=== PATIENT | female | born 1970 | race Hispanic/Latino ===

== ENCOUNTER → 2019-08-01 | Outpatient (CLI) | payer BC | END | disposition home or self-care (01) | LOC: OIH 12:55 | PROVIDERS: ATTEND Internal Medicine | DX: M19.011 Primary osteoarthritis, right shoulder (principal); M24.811 Other specific joint derangements of right shoulder, not elsewhere classified | CPT/HCPCS: 73030 ==

== ENCOUNTER 2020-11-05 20:03 | Emergency (ER) | payer BC ==
[2020-11-05 20:57] LABS: RAPID GROUP A STREP NEGATIVE (NEGATIVE)
[2020-11-05 21:59] LABS: BASOPHILS % (AUTO) 0.6 % (0.0-5.0); EOSINOPHILS % (AUTO) 3.5 % (0.0-8.0); HEMATOCRIT 31.5 % (36-48); LYMPHOCYTES % (AUTO) 19.2 % (21.0-51.0); MEAN CORPUSCULAR VOLUME 93.8 fL (79-99); MONOCYTES % (AUTO) 6.2 % (3.0-13.0); NEUTROPHILS % (AUTO) 70.1 % (40.0-77.0); PLATELET COUNT (AUTO) 268 K/uL (130-400); RED BLOOD CELL COUNT(AUTO) 3.36 MIL/uL (4.00-5.50); RED CELL DISTRIBUTION WIDTH 14.3 % (11.0-15.5); WHITE BLOOD COUNT (AUTO) 8.1 K/uL (4.8-10.8)
[2020-11-05 22:20] LABS: ALBUMIN 3.5 g/dL (3.5-5.0); BILIRUBIN,TOTAL 0.5 mg/dL (0.2-1.0); CREATININE 4.8 mg/dL (0.5-1.5); POTASSIUM 4.5 mmol/L (3.5-5.1); TOTAL PROTEIN, SERUM 7.8 g/dL (6.0-8.3)
[2020-11-05] MEDS ORDERED: INSULIN HUMULIN R 100 UNIT/ML 3ML ONE (22:43)
== END 2020-11-05 23:33 | disposition home or self-care (01) ==
LOC: EDH 20:03
DX: B34.9 Viral infection, unspecified (principal); R73.9 Hyperglycemia, unspecified; Z20.828 Contact with and (suspected) exposure to other viral communicable diseases; I12.0 Hypertensive chronic kidney disease with stage 5 chronic kidney disease or end stage renal disease; N18.6 End stage renal disease; E78.00 Pure hypercholesterolemia, unspecified; Z91.14 Patient's other noncompliance with medication regimen; Z88.1 Allergy status to other antibiotic agents; Z98.890 Other specified postprocedural states; Z99.2 Dependence on renal dialysis
CPT/HCPCS: 36415; 71045; 80053; 83605; 84484; 85025; 87040 ×2; 87426; 87804 ×2; 87880; 96372; 99284; J1815; U0003

== ENCOUNTER 2020-12-04 19:25 | Observation (INO) | payer BC ==
[2020-12-04 21:11] LABS: BASOPHILS % (AUTO) 0.5 % (0.0-5.0); EOSINOPHILS % (AUTO) 0.5 % (0.0-8.0); HEMATOCRIT 32.7 % (36-48); LYMPHOCYTES % (AUTO) 18.2 % (21.0-51.0); MEAN CORPUSCULAR HEMOGLOBIN 30.2 pg (27.0-33.0); MEAN CORPUSCULAR HGB CONC 32.1 g/dL (32.0-36.0); MONOCYTES % (AUTO) 7.6 % (3.0-13.0); NEUTROPHILS % (AUTO) 72.7 % (40.0-77.0); PLATELET COUNT (AUTO) 165 K/uL (130-400); RED BLOOD CELL COUNT(AUTO) 3.48 MIL/uL (4.00-5.50); RED CELL DISTRIBUTION WIDTH 14.8 % (11.0-15.5); WHITE BLOOD COUNT (AUTO) 4.3 K/uL (4.8-10.8)
[2020-12-04 21:34] LABS: ALBUMIN 3.4 g/dL (3.5-5.0); BILIRUBIN,TOTAL 0.7 mg/dL (0.2-1.0); CRP QUANTITATIVE 83.2 mg/L (0.00-9.0); POTASSIUM 5.3 mmol/L (3.5-5.1); TOTAL PROTEIN, SERUM 7.8 g/dL (6.0-8.3)
[2020-12-04 21:35] LABS: CREATININE 8.3 mg/dL (0.5-1.5)
[2020-12-04] MEDS ORDERED: ACETAMINOPHEN EXTRA STRENGTH 500 MG TABLET ONE (22:15)
[2020-12-04] MEDS ORDERED: ALBUTEROL INHALER 90MCG/INH IH ONE (22:15)
[2020-12-05] MEDS ORDERED: METHYLPREDNISOLONE SOD SUCC 40MG/ML 1ML ONE (03:36)
[2020-12-05] MEDS ORDERED: ENOXAPARIN SODIUM 30 MG/0.3 ML SQ ONE (03:37)
[2020-12-05] MEDS ORDERED: AZITHROMYCIN 250 MG TABLET PO ONE (03:37)
[2020-12-05] MEDS ORDERED: INSULIN HUMULIN R 100 UNIT/ML 3ML ONE ×3 (08:41→21:20)
[2020-12-05] MEDS ORDERED: HYDROCODONE/ACETAMINOPHEN 5/325 MG TAB PO PRN (11:00)
[2020-12-05] MEDS ORDERED: ALBUTEROL INHALER 90MCG/INH IH PRN (11:00)
[2020-12-05] MEDS ORDERED: CLONIDINE HCL 0.1 MG TABLET PO PRN (11:00)
[2020-12-05] MEDS ORDERED: ONDANSETRON HCL 4 MG/2 ML VIAL IVP PRN (11:00)
[2020-12-05] MEDS ORDERED: ACETAMINOPHEN 325 MG TAB PO PRN (11:00)
[2020-12-05] MEDS ORDERED: ACETAMINOPHEN 650 MG SUPPOSITORY RC PRN (11:00)
[2020-12-05] MEDS ORDERED: LABETALOL 20 MG/4 ML DISP.SYRIN IV PRN (11:00)
[2020-12-05] MEDS: METOCLOPRAMIDE 5 MG TABLET PO SCH ×3 (11:30→21:00)
[2020-12-05] MEDS ORDERED: INSULIN HUMULIN R 100 UNIT/ML 3ML SQ SCH (11:30)
[2020-12-05 11:59] LABS: ABG BASE EXCESS -2.6 mmol/L (-2.0-3.0); ABG HCO3 22.3 mmol/L (21.0-28.0); ABG OXYGEN SATURATION 96.2 % (95.0-99.0); ABG PCO2 39 mmHg (32-45)
[2020-12-05 12:40] LABS: TROPONIN I 0.49 ng/mL (0.00-0.06)
[2020-12-05 17:41] LABS: CREATINE KINASE, TOTAL 77 U/L (21-232); MYOGLOBIN 56 ng/mL (10-92); TROPONIN I < 0.04 ng/mL (0.00-0.06)
[2020-12-05] MEDS ORDERED: DIPHENHYDRAMINE HCL 25 MG CAPSULE ONE (17:51)
[2020-12-05] MEDS: ENOXAPARIN SODIUM 30 MG/0.3 ML SQ SCH (21:00)
[2020-12-05] MEDS: INSULIN GLARGINE 100 UNITS/ML 10 ML VIAL SQ SCH (21:00)
[2020-12-05] MEDS: INSULIN HUMULIN R 100 UNIT/ML 3ML SQ SCH (21:00)
[2020-12-05] MEDS ORDERED: SIMVASTATIN 20 MG TABLET PO SCH (21:00)
[2020-12-06 01:14] LABS: TROPONIN I 0.53 ng/mL (0.00-0.06)
[2020-12-06 05:43] LABS: BASOPHILS % (AUTO) 0.4 % (0.0-5.0); EOSINOPHILS % (AUTO) 0.3 % (0.0-8.0); LYMPHOCYTES % (AUTO) 13.7 % (21.0-51.0); MEAN CORPUSCULAR HEMOGLOBIN 30.2 pg (27.0-33.0); MEAN CORPUSCULAR HGB CONC 31.9 g/dL (32.0-36.0); MEAN CORPUSCULAR VOLUME 94.5 fL (79-99); MONOCYTES % (AUTO) 3.2 % (3.0-13.0); NEUTROPHILS % (AUTO) 82.1 % (40.0-77.0); PLATELET COUNT (AUTO) 174 K/uL (130-400); RED BLOOD CELL COUNT(AUTO) 3.81 MIL/uL (4.00-5.50); RED CELL DISTRIBUTION WIDTH 14.6 % (11.0-15.5); WHITE BLOOD COUNT (AUTO) 7.7 K/uL (4.8-10.8)
[2020-12-06 06:16] LABS: ALBUMIN 3.3 g/dL (3.5-5.0); BILIRUBIN,TOTAL 0.6 mg/dL (0.2-1.0); CREATININE 6.5 mg/dL (0.5-1.5); CRP QUANTITATIVE 106.4 mg/L (0.00-9.0); MAGNESIUM 2.1 mg/dL (1.80-2.40); PHOSPHORUS 5.2 mg/dL (2.5-4.9); POTASSIUM 4.2 mmol/L (3.5-5.1); TOTAL PROTEIN, SERUM 8.1 g/dL (6.0-8.3)
[2020-12-06] MEDS: INSULIN HUMULIN R 100 UNIT/ML 3ML SQ SCH ×3 (06:33→17:03)
[2020-12-06] MEDS: INSULIN GLARGINE 100 UNITS/ML 10 ML VIAL SQ SCH (06:34)
[2020-12-06] MEDS: METOCLOPRAMIDE 5 MG TABLET PO SCH ×2 (07:03→13:53)
[2020-12-06] MEDS ORDERED: VITAMIN D 2000 UNIT PO SCH (09:00)
[2020-12-06] MEDS ORDERED: ASCORBIC ACID 500 MG TAB PO SCH (09:00)
[2020-12-06] MEDS ORDERED: AZITHROMYCIN 500MG+NS 250ML IV SCH (09:00)
[2020-12-06] MEDS ORDERED: CEFTRIAXONE SODIUM 1 GM IVP SCH (09:00)
[2020-12-06] MEDS ORDERED: DEXAMETHASONE SOD PHOSPHATE 10MG/ML 1ML VIAL IVP SCH (09:00)
[2020-12-06] MEDS ORDERED: Vitamin B Complex/Vit C/Folic Acid PO SCH (09:00)
[2020-12-06] MEDS ORDERED: AZITHROMYCIN 500MG+NS 250ML 250 ML IV SCH (09:00)
[2020-12-06] MEDS ORDERED: PANTOPRAZOLE SODIUM 40 MG TABLET.DR PO SCH (09:00)
[2020-12-06] MEDS ORDERED: ASPIRIN 81MG TAB.CHEW PO SCH (09:00)
[2020-12-06] MEDS: ENOXAPARIN SODIUM 30 MG/0.3 ML SQ SCH (09:41)
[2020-12-06 10:15] VITALS: BP 142/68
[2020-12-06 12:00] VITALS: BP 136/74
[2020-12-06] MEDS ORDERED: AZIT500T4 PO (12:00)
[2020-12-06] MEDS ORDERED: DEXA6TAB7 PO (12:00)
[2020-12-06] MEDS ORDERED: ZINC SULFATE 220 CAPSULE PO SCH (12:00)
[2020-12-10] MEDS ORDERED: DOXY100C40 PO (14:47)
[2020-12-20] MEDS ORDERED: LACT10SO PO (22:02)
== END 2020-12-06 19:40 | disposition home or self-care (01) ==
LOC: EDH 19:25 → EDHIP 23:25 → 4AH 12-06
PROVIDERS: ADMIT Internal Medicine Critical Care Medicine; ATTEND Internal Medicine Critical Care Medicine
DX: U07.1 COVID-19 (principal); J12.82 Pneumonia due to coronavirus disease 2019; J96.01 Acute respiratory failure with hypoxia; I12.0 Hypertensive chronic kidney disease with stage 5 chronic kidney disease or end stage renal disease; E11.22 Type 2 diabetes mellitus with diabetic chronic kidney disease; N18.6 End stage renal disease; E87.2 Acidosis; E11.51 Type 2 diabetes mellitus with diabetic peripheral angiopathy without gangrene; E66.9 Obesity, unspecified; E78.2 Mixed hyperlipidemia; E11.65 Type 2 diabetes mellitus with hyperglycemia; E87.5 Hyperkalemia; D64.9 Anemia, unspecified; E78.00 Pure hypercholesterolemia, unspecified; E83.39 Other disorders of phosphorus metabolism; Z99.2 Dependence on renal dialysis; Z91.19 Patient's noncompliance with other medical treatment and regimen; Z89.512 Acquired absence of left leg below knee; Z89.611 Acquired absence of right leg above knee; Z89.612 Acquired absence of left leg above knee; Z79.82 Long term (current) use of aspirin; Z79.4 Long term (current) use of insulin; Z79.899 Other long term (current) drug therapy; Z88.1 Allergy status to other antibiotic agents
CPT/HCPCS: 36415 ×3; 36600; 71045 ×2; 80053 ×2; 82550 ×4; 82728 ×2; 82803; 82948 ×8; 83605 ×2; 83615; 83735; 83874 ×3; 83880; 84100; 84145 ×2; 84484 ×4; 85025 ×2; 85378; 86140 ×2; 86850; 86900; 86901; 87040 ×2; 87426; 87804 ×2; 93005; 96365; 96366; 96372; 96375; 99285; G0378 ×42; J0456; J0696; J1100; J1650 ×2; J1815 ×4; J2920; Q0163; 90935

== ENCOUNTER 2020-12-09 03:28 | Inpatient (IN) | payer BC ==
[~2020-12-09] VITALS: Ht 152.4 cm; Wt 90.3 kg
[~2020-12-09 03:28] MED LIST: AZIT500T4 PO; DEXA6TAB7 PO
[2020-12-09] MEDS ORDERED: CEFTRIAXONE 2GM VIAL ONE (04:18)
[2020-12-09 04:25] LABS: BASOPHILS % (AUTO) 0.1 % (0.0-5.0); HEMATOCRIT 33.9 % (36-48); LYMPHOCYTES % (AUTO) 7.4 % (21.0-51.0); MEAN CORPUSCULAR HGB CONC 31.3 g/dL (32.0-36.0); MEAN CORPUSCULAR VOLUME 92.9 fL (79-99); MONOCYTES % (AUTO) 2.2 % (3.0-13.0); NEUTROPHILS % (AUTO) 89.7 % (40.0-77.0); PLATELET COUNT (AUTO) 243 K/uL (130-400); RED BLOOD CELL COUNT(AUTO) 3.65 MIL/uL (4.00-5.50); RED CELL DISTRIBUTION WIDTH 14.9 % (11.0-15.5); WHITE BLOOD COUNT (AUTO) 9.4 K/uL (4.8-10.8)
[2020-12-09] MEDS ORDERED: AZITHROMYCIN 500MG+NS 250ML 250 ML IV ONE (04:42)
[2020-12-09 04:57] LABS: ALBUMIN 2.9 g/dL (3.5-5.0); BILIRUBIN,TOTAL 0.5 mg/dL (0.2-1.0); CRP QUANTITATIVE 114.2 mg/L (0.00-9.0); TOTAL PROTEIN, SERUM 7.2 g/dL (6.0-8.3)
[2020-12-09 05:01] LABS: B-TYPE NATRIURETIC PEPTIDE 2640 pg/mL (0-100)
[2020-12-09 05:06] LABS: CREATININE 11.5 mg/dL (0.5-1.5); TROPONIN I 1.18 ng/mL (0.00-0.06)
[2020-12-09 05:07] LABS: INR 1.03 (0.85-1.15)
[2020-12-09 05:09] LABS: PARTIAL THROMBOPLASTIN TIME 31.2 SEC (26.3-35.5)
[2020-12-09] MEDS ORDERED: ALBUTEROL INHALER 90MCG/INH IH ONE (05:43)
[2020-12-09] MEDS ORDERED: ASPIRIN 325 MG TABLET ONE (05:44)
[2020-12-09] MEDS ORDERED: KAYEXALATE 15GM/60ML ONE (05:44)
[2020-12-09] MEDS ORDERED: SODIUM BICARB 50MEQ 50ML VIAL 50 ML ONE (05:45)
[2020-12-09] MEDS ORDERED: DEXTROSE 50%-WATER 50 ML DISP.SYRIN IV ONE (05:45)
[2020-12-09] MEDS ORDERED: INSULIN HUMULIN R 100 UNIT/ML 3ML ONE ×4 (05:46→20:30)
[2020-12-09 05:48] LABS: ABG BASE EXCESS -10.7 mmol/L (-2.0-3.0); ABG HCO3 15.5 mmol/L (21.0-28.0); ABG OXYGEN SATURATION 85.7 % (95.0-99.0); ABG PCO2 35 mmHg (32-45)
[2020-12-09] MEDS: DEXAMETHASONE SOD PHOSPHATE 4 MG/ML 1ML VIAL IVP SCH (12:00)
[2020-12-09] MEDS: AZITHROMYCIN 500MG+NS 250ML 250 ML IV SCH (12:15)
[2020-12-09] MEDS ORDERED: HEPARIN 5,000 UNIT VIAL SQ SCH (12:15)
[2020-12-09] MEDS ORDERED: ALBUTEROL 0.083% 2.5 MG/3 ML INH IH PRN (12:15)
[2020-12-09] MEDS ORDERED: ONDANSETRON 4MG TABLET PO PRN (12:15)
[2020-12-09] MEDS ORDERED: DEXAMETHASONE SOD PHOSPHATE 10MG/ML 1ML VIAL ONE (13:48)
[2020-12-09] MEDS ORDERED: HEPARIN 5,000 UNIT VIAL ONE (13:48)
[2020-12-09] MEDS ORDERED: PANTOPRAZOLE 40 MG TAB DR ONE (13:48)
[2020-12-09] MEDS ORDERED: ZINC SULFATE 220 CAPSULE ONE (14:44)
[2020-12-09] MEDS ORDERED: ASCORBIC ACID 500 MG TAB ONE (14:44)
[2020-12-09] MEDS ORDERED: CLOPIDOGREL 300MG TAB ONE (16:07)
[2020-12-09] MEDS: INSULIN HUMULIN R 100 UNIT/ML 3ML SQ SCH ×2 (16:30→21:00)
[2020-12-09] MEDS ORDERED: CLOPIDOGREL 300MG TAB PO SCH (16:45)
[2020-12-09] MEDS ORDERED: ALBUTEROL INHALER 90MCG/INH IH PRN (17:45)
[2020-12-09] MEDS: FLUTICASONE/VILANTEROL 1 EACH AER.POW.BA IH SCH (18:00)
[2020-12-09] MEDS ORDERED: 0.9%NACL 50ML 50 ML IV ONE (20:26)
[2020-12-09] MEDS: ENOXAPARIN SODIUM 100 MG/1 ML SQ SCH (21:00)
[2020-12-09] MEDS ORDERED: BUDESONIDE 0.5 MG/2 ML INH IH SCH (21:00)
[2020-12-09] MEDS: INSULIN GLARGINE 100 UNITS/ML 10 ML VIAL SQ SCH (21:00)
[2020-12-09] MEDS ORDERED: DiphenhydrAMINE HCL 50 MG/ML VIAL ONE (22:26)
[2020-12-09] MEDS ORDERED: ACETAMINOPHEN 325 MG TAB ONE (22:26)
[2020-12-09] MEDS ORDERED: FAMOTIDINE 20MG VIAL IV ONE (22:27)
[2020-12-10] MEDS ORDERED: HEPARIN 5,000 UNIT VIAL ONE (02:07)
[2020-12-10] MEDS ORDERED: CEFTRIAXONE 1G VIAL ONE (03:58)
[2020-12-10 05:49] LABS: HEMATOCRIT 31.7 % (36-48); MEAN CORPUSCULAR HEMOGLOBIN 30.4 pg (27.0-33.0); MEAN CORPUSCULAR HGB CONC 33.8 g/dL (32.0-36.0); MEAN CORPUSCULAR VOLUME 90.1 fL (79-99); PLATELET COUNT (AUTO) 253 K/uL (130-400); RED BLOOD CELL COUNT(AUTO) 3.52 MIL/uL (4.00-5.50); RED CELL DISTRIBUTION WIDTH 14.3 % (11.0-15.5)
[2020-12-10 06:05] LABS: PHOSPHORUS 6.4 mg/dL (2.5-4.9); POTASSIUM 4.3 mmol/L (3.5-5.1)
[2020-12-10 06:13] LABS: CREATININE 8.8 mg/dL (0.5-1.5)
[2020-12-10 07:03] LABS: LYMPHOCYTES % (MANUAL) 9 % (22-44); MAN.DIFF COMMENT-IMPRESSION MANUAL DIFFERENTIAL; MONOCYTES % (MANUAL) 4 % (2-9); PLATELET MORPHOLOGY COMMENT ADEQUATE; SEGMENTED NEUTROPHILS % 87 % (40-70)
[2020-12-10] MEDS: INSULIN HUMULIN R 100 UNIT/ML 3ML SQ SCH ×4 (07:30→21:00)
[2020-12-10] MEDS ORDERED: PANTOPRAZOLE 40 MG TAB DR ONE (07:58)
[2020-12-10] MEDS ORDERED: DEXAMETHASONE SOD PHOSPHATE 10MG/ML 1ML VIAL ONE (07:58)
[2020-12-10] MEDS ORDERED: CLOPIDOGREL 75MG TAB ONE (08:05)
[2020-12-10] MEDS ORDERED: ASPIRIN 81MG CHEW TAB ONE (08:06)
[2020-12-10] MEDS: FLUTICASONE/VILANTEROL 1 EACH AER.POW.BA IH SCH (09:00)
[2020-12-10] MEDS: DEXAMETHASONE SOD PHOSPHATE 4 MG/ML 1ML VIAL IVP SCH (09:00)
[2020-12-10] MEDS: CLOPIDOGREL 75MG TAB PO SCH (09:00)
[2020-12-10] MEDS: CEFTRIAXONE 500MG VIAL IV SCH (09:00)
[2020-12-10] MEDS: ASPIRIN 81MG CHEW TAB PO SCH (09:00)
[2020-12-10] MEDS: PANTOPRAZOLE 40 MG TAB DR PO SCH (09:00)
[2020-12-10] MEDS: AZITHROMYCIN 500MG+NS 250ML 250 ML IV SCH (12:15)
[2020-12-10] MEDS ORDERED: INSULIN HUMULIN R 100 UNIT/ML 3ML ONE ×2 (12:25→16:44)
[2020-12-10] MEDS ORDERED: OLOP5DRO14 OP (14:47)
[2020-12-10] MEDS ORDERED: INSU3INS5 SQ ×2 (14:47)
[2020-12-10] MEDS ORDERED: HYDR-4153 PO (14:47)
[2020-12-10] MEDS ORDERED: MELO15TA12 PO (14:47)
[2020-12-10] MEDS ORDERED: LACT10SO76 PO (14:47)
[2020-12-10] MEDS ORDERED: AZIT500T4 PO (14:47)
[2020-12-10] MEDS ORDERED: SEVE800T27 PO (14:47)
[2020-12-10] MEDS ORDERED: ASPI-1443 PO (14:47)
[2020-12-10] MEDS ORDERED: DOXY-336 PO (14:47)
[2020-12-10] MEDS ORDERED: TRAZ-185 PO (14:47)
[2020-12-10] MEDS: INSULIN GLARGINE 100 UNITS/ML 10 ML VIAL SQ SCH (21:00)
[2020-12-10] MEDS: ENOXAPARIN SODIUM 100 MG/1 ML SQ SCH (21:00)
[2020-12-10 22:10] VITALS: BP 190/88
[2020-12-10 23:35] VITALS: BP 178/78
[2020-12-11 03:55] VITALS: BP 168/83
[2020-12-11 04:10] LABS: ABG BASE EXCESS -3.2 mmol/L (-2.0-3.0); ABG HCO3 21.1 mmol/L (21.0-28.0); ABG OXYGEN SATURATION 86.3 % (95.0-99.0); ABG PCO2 36 mmHg (32-45)
[2020-12-11 06:05] LABS: HEMATOCRIT 30.5 % (36-48); LYMPHOCYTES % (AUTO) 8.5 % (21.0-51.0); MEAN CORPUSCULAR HEMOGLOBIN 29.8 pg (27.0-33.0); MEAN CORPUSCULAR HGB CONC 33.4 g/dL (32.0-36.0); MEAN CORPUSCULAR VOLUME 89.2 fL (79-99); MONOCYTES % (AUTO) 2.6 % (3.0-13.0); NEUTROPHILS % (AUTO) 87.9 % (40.0-77.0); PLATELET COUNT (AUTO) 248 K/uL (130-400); RED BLOOD CELL COUNT(AUTO) 3.42 MIL/uL (4.00-5.50); RED CELL DISTRIBUTION WIDTH 14.3 % (11.0-15.5); WHITE BLOOD COUNT (AUTO) 8.6 K/uL (4.8-10.8)
[2020-12-11 06:27] LABS: POTASSIUM 4.2 mmol/L (3.5-5.1)
[2020-12-11 06:33] LABS: CREATININE 10.1 mg/dL (0.5-1.5)
[2020-12-11] MEDS: ACETAMINOPHEN 325 MG TAB PO PRN ×2 (06:43→16:56)
[2020-12-11] MEDS: INSULIN HUMULIN R 100 UNIT/ML 3ML SQ SCH ×3 (06:44→17:20)
[2020-12-11 08:50] VITALS: BP 154/73
[2020-12-11] MEDS: GABAPENTIN 100 MG CAPSULE PO SCH ×3 (08:52→22:28)
[2020-12-11] MEDS: CLOPIDOGREL 75MG TAB PO SCH (08:52)
[2020-12-11] MEDS: ASPIRIN 81MG CHEW TAB PO SCH (08:52)
[2020-12-11] MEDS: DEXAMETHASONE SOD PHOSPHATE 4 MG/ML 1ML VIAL IVP SCH (08:52)
[2020-12-11] MEDS: CEFTRIAXONE 500MG VIAL IV SCH ×2 (08:53→09:00)
[2020-12-11] MEDS: PANTOPRAZOLE 40 MG TAB DR PO SCH (08:53)
[2020-12-11] MEDS: FLUTICASONE/VILANTEROL 1 EACH AER.POW.BA IH SCH (09:00)
[2020-12-11] MEDS ORDERED: TRAZODONE HCL 50 MG TAB PO SCH (12:15)
[2020-12-11] MEDS: AZITHROMYCIN 500MG+NS 250ML 250 ML IV SCH (12:36)
[2020-12-11] MEDS ORDERED: IBUPROFEN 400 MG TABLET PO PRN (12:45)
[2020-12-11 12:50] VITALS: BP 129/66
[2020-12-11] MEDS ORDERED: SEVELAMER HCL 800 MG TABLET PO SCH (14:00)
[2020-12-11 16:45] VITALS: BP 148/56
[2020-12-11] MEDS: HYDRALAZINE 25MG TABLET PO SCH ×3 (16:55→22:54)
[2020-12-11] MEDS: LACTULOSE 20 GM/30 ML UDCUP PO SCH ×2 (16:56→22:28)
[2020-12-11 20:28] VITALS: BP 118/53
[2020-12-11] MEDS ORDERED: INSULIN HUMULIN 70/30 100 UNIT/ML 3ML SQ SCH (21:00)
[2020-12-11] MEDS: ENOXAPARIN SODIUM 100 MG/1 ML SQ SCH (22:26)
[2020-12-11] MEDS: TRAZODONE HCL 50 MG TAB PO SCH (22:27)
[2020-12-11] MEDS ORDERED: INSULIN HUMULIN R 100 UNIT/ML 3ML ONE (23:47)
[2020-12-11] MEDS: INSULIN GLARGINE 100 UNITS/ML 10 ML VIAL SQ SCH (23:52)
[2020-12-12 00:44] VITALS: BP 91/55
[2020-12-12 04:32] VITALS: BP 112/58
[2020-12-12 05:30] LABS: BASOPHILS % (AUTO) 0.1 % (0.0-5.0); EOSINOPHILS % (AUTO) 0.1 % (0.0-8.0); HEMATOCRIT 34.1 % (36-48); LYMPHOCYTES % (AUTO) 11.3 % (21.0-51.0); MEAN CORPUSCULAR HEMOGLOBIN 30.2 pg (27.0-33.0); MEAN CORPUSCULAR HGB CONC 33.4 g/dL (32.0-36.0); MEAN CORPUSCULAR VOLUME 90.5 fL (79-99); NEUTROPHILS % (AUTO) 86.3 % (40.0-77.0); PLATELET COUNT (AUTO) 281 K/uL (130-400); RED BLOOD CELL COUNT(AUTO) 3.77 MIL/uL (4.00-5.50); RED CELL DISTRIBUTION WIDTH 14.6 % (11.0-15.5); WHITE BLOOD COUNT (AUTO) 10.2 K/uL (4.8-10.8)
[2020-12-12 05:55] LABS: ALBUMIN 2.4 g/dL (3.5-5.0); BILIRUBIN,TOTAL 0.3 mg/dL (0.2-1.0); PHOSPHORUS 6.2 mg/dL (2.5-4.9); POTASSIUM 4.2 mmol/L (3.5-5.1); TOTAL PROTEIN, SERUM 7.3 g/dL (6.0-8.3)
[2020-12-12] MEDS: INSULIN HUMULIN R 100 UNIT/ML 3ML SQ SCH ×4 (05:56→21:05)
[2020-12-12 05:58] LABS: CREATININE 7.9 mg/dL (0.5-1.5)
[2020-12-12 08:23] VITALS: BP 115/66
[2020-12-12] MEDS: CLOPIDOGREL 75MG TAB PO SCH (08:31)
[2020-12-12] MEDS: SEVELAMER HCL 800 MG TABLET PO SCH ×4 (08:31→20:58)
[2020-12-12] MEDS: GABAPENTIN 100 MG CAPSULE PO SCH ×3 (08:31→20:56)
[2020-12-12] MEDS: PANTOPRAZOLE 40 MG TAB DR PO SCH (08:31)
[2020-12-12] MEDS: ASPIRIN 81MG CHEW TAB PO SCH (08:31)
[2020-12-12] MEDS: HYDRALAZINE 25MG TABLET PO SCH ×3 (08:32→20:56)
[2020-12-12] MEDS: FLUTICASONE/VILANTEROL 1 EACH AER.POW.BA IH SCH (08:33)
[2020-12-12] MEDS: DEXAMETHASONE SOD PHOSPHATE 4 MG/ML 1ML VIAL IVP SCH (08:33)
[2020-12-12] MEDS: LACTULOSE 20 GM/30 ML UDCUP PO SCH ×3 (08:34→21:00)
[2020-12-12] MEDS: INSULIN HUMULIN 70/30 100 UNIT/ML 3ML SQ SCH (08:47)
[2020-12-12] MEDS: OLOPATADINE HCL 0.1% 5ML DROPS OP SCH (09:00)
[2020-12-12] MEDS: CEFTRIAXONE 500MG VIAL IV SCH (09:00)
[2020-12-12 11:13] LABS: HEPATITIS A ANTIBODY IGM Negative (Negative); HEPATITIS B CORE IGM Negative (Negative); HEPATITIS Bs ANTIGEN SCREEN P Negative (Negative)
[2020-12-12] MEDS: AZITHROMYCIN 500MG+NS 250ML 250 ML IV SCH (12:19)
[2020-12-12] MEDS: ONDANSETRON 4MG INJ IVP PRN ×2 (12:22→20:59)
[2020-12-12 12:40] VITALS: BP 131/70
[2020-12-12 16:50] VITALS: BP 115/76
[2020-12-12 20:24] VITALS: BP 115/67
[2020-12-12] MEDS: TRAZODONE HCL 50 MG TAB PO SCH (20:56)
[2020-12-12] MEDS: ENOXAPARIN SODIUM 100 MG/1 ML SQ SCH (20:57)
[2020-12-12] MEDS ORDERED: INSULIN GLARGINE 100 UNITS/ML 10 ML VIAL SQ ONE (21:45)
[2020-12-12] MEDS ORDERED: INSULIN HUMULIN R 100 UNIT/ML 3ML SQ SCH (23:00)
[2020-12-13 00:24] VITALS: BP 129/63
[2020-12-13 04:24] VITALS: BP 122/58
[2020-12-13 04:57] LABS: BASOPHILS % (AUTO) 0.1 % (0.0-5.0); EOSINOPHILS % (AUTO) 0.1 % (0.0-8.0); HEMATOCRIT 31.5 % (36-48); LYMPHOCYTES % (AUTO) 15.6 % (21.0-51.0); MEAN CORPUSCULAR HEMOGLOBIN 29.6 pg (27.0-33.0); MEAN CORPUSCULAR HGB CONC 32.4 g/dL (32.0-36.0); MEAN CORPUSCULAR VOLUME 91.3 fL (79-99); MONOCYTES % (AUTO) 1.4 % (3.0-13.0); NEUTROPHILS % (AUTO) 81.2 % (40.0-77.0); PLATELET COUNT (AUTO) 312 K/uL (130-400); RED BLOOD CELL COUNT(AUTO) 3.45 MIL/uL (4.00-5.50); RED CELL DISTRIBUTION WIDTH 14.6 % (11.0-15.5); WHITE BLOOD COUNT (AUTO) 8.1 K/uL (4.8-10.8)
[2020-12-13 05:12] LABS: PHOSPHORUS 6.8 mg/dL (2.5-4.9); POTASSIUM 5.1 mmol/L (3.5-5.1)
[2020-12-13 05:15] LABS: CREATININE 9.4 mg/dL (0.5-1.5)
[2020-12-13] MEDS: INSULIN HUMULIN R 100 UNIT/ML 3ML SQ SCH ×4 (06:15→20:22)
[2020-12-13] MEDS: CLOPIDOGREL 75MG TAB PO SCH (08:33)
[2020-12-13] MEDS: PANTOPRAZOLE 40 MG TAB DR PO SCH (08:33)
[2020-12-13] MEDS: HYDRALAZINE 25MG TABLET PO SCH ×3 (08:33→20:17)
[2020-12-13] MEDS: LACTULOSE 20 GM/30 ML UDCUP PO SCH ×3 (08:34→20:17)
[2020-12-13] MEDS: DEXAMETHASONE SOD PHOSPHATE 4 MG/ML 1ML VIAL IVP SCH (08:34)
[2020-12-13] MEDS: GABAPENTIN 100 MG CAPSULE PO SCH ×3 (08:34→20:16)
[2020-12-13] MEDS: SEVELAMER HCL 800 MG TABLET PO SCH ×3 (08:34→20:16)
[2020-12-13] MEDS: ASPIRIN 81MG CHEW TAB PO SCH (08:34)
[2020-12-13] MEDS: OLOPATADINE HCL 0.1% 5ML DROPS OP SCH (08:35)
[2020-12-13] MEDS: INSULIN HUMULIN 70/30 100 UNIT/ML 3ML SQ SCH (08:40)
[2020-12-13 08:48] VITALS: BP 112/69
[2020-12-13] MEDS: FLUTICASONE/VILANTEROL 1 EACH AER.POW.BA IH SCH (09:00)
[2020-12-13] MEDS: AZITHROMYCIN 500MG+NS 250ML 250 ML IV SCH (11:42)
[2020-12-13 12:55] VITALS: BP 118/66
[2020-12-13] MEDS: CEFTRIAXONE 500MG VIAL IV SCH (14:06)
[2020-12-13 16:10] VITALS: BP 106/54
[2020-12-13 20:00] VITALS: BP 118/62
[2020-12-13] MEDS: TRAZODONE HCL 50 MG TAB PO SCH (20:16)
[2020-12-13] MEDS: ENOXAPARIN SODIUM 100 MG/1 ML SQ SCH (20:20)
[2020-12-13] MEDS: INSULIN GLARGINE 100 UNITS/ML 10 ML VIAL SQ SCH (20:22)
[2020-12-14 00:44] VITALS: BP 143/73
[2020-12-14 05:26] VITALS: BP 138/68
[2020-12-14] MEDS: INSULIN HUMULIN R 100 UNIT/ML 3ML SQ SCH ×4 (05:53→22:13)
[2020-12-14 06:29] LABS: BASOPHILS % (AUTO) 0.2 % (0.0-5.0); EOSINOPHILS % (AUTO) 2.1 % (0.0-8.0); HEMATOCRIT 30.8 % (36-48); LYMPHOCYTES % (AUTO) 9.1 % (21.0-51.0); MEAN CORPUSCULAR HEMOGLOBIN 30.2 pg (27.0-33.0); MEAN CORPUSCULAR HGB CONC 32.1 g/dL (32.0-36.0); MEAN CORPUSCULAR VOLUME 93.9 fL (79-99); MONOCYTES % (AUTO) 1.3 % (3.0-13.0); NEUTROPHILS % (AUTO) 83.2 % (40.0-77.0); PLATELET COUNT (AUTO) 345 K/uL (130-400); RED BLOOD CELL COUNT(AUTO) 3.28 MIL/uL (4.00-5.50); RED CELL DISTRIBUTION WIDTH 14.6 % (11.0-15.5); WHITE BLOOD COUNT (AUTO) 10.8 K/uL (4.8-10.8)
[2020-12-14 06:42] LABS: CREATININE 6.9 mg/dL (0.5-1.5); MAGNESIUM 2.1 mg/dL (1.80-2.40); PHOSPHORUS 4.3 mg/dL (2.5-4.9); POTASSIUM 4.9 mmol/L (3.5-5.1)
[2020-12-14 08:30] VITALS: BP 132/69
[2020-12-14] MEDS: FLUTICASONE/VILANTEROL 1 EACH AER.POW.BA IH SCH (09:00)
[2020-12-14] MEDS: LACTULOSE 20 GM/30 ML UDCUP PO SCH ×3 (09:00→21:38)
[2020-12-14] MEDS: DEXAMETHASONE SOD PHOSPHATE 4 MG/ML 1ML VIAL IVP SCH (09:11)
[2020-12-14] MEDS: CLOPIDOGREL 75MG TAB PO SCH (09:11)
[2020-12-14] MEDS: SEVELAMER HCL 800 MG TABLET PO SCH ×3 (09:11→21:38)
[2020-12-14] MEDS: PANTOPRAZOLE 40 MG TAB DR PO SCH (09:11)
[2020-12-14] MEDS: GABAPENTIN 100 MG CAPSULE PO SCH ×3 (09:12→21:38)
[2020-12-14] MEDS: ASPIRIN 81MG CHEW TAB PO SCH (09:12)
[2020-12-14] MEDS: HYDRALAZINE 25MG TABLET PO SCH ×3 (09:12→21:00)
[2020-12-14] MEDS: OLOPATADINE HCL 0.1% 5ML DROPS OP SCH (09:13)
[2020-12-14] MEDS: INSULIN HUMULIN 70/30 100 UNIT/ML 3ML SQ SCH (09:22)
[2020-12-14] MEDS ORDERED: SIMETHICONE 80 MG TAB.CHEW PO PRN (11:00)
[2020-12-14 11:29] VITALS: BP 110/47
[2020-12-14] MEDS: AZITHROMYCIN 500MG+NS 250ML 250 ML IV SCH (11:53)
[2020-12-14 16:27] VITALS: BP 131/40
[2020-12-14 20:43] VITALS: BP 116/52
[2020-12-14] MEDS: CEFTRIAXONE 500MG VIAL IV SCH (21:00)
[2020-12-14] MEDS: TRAZODONE HCL 50 MG TAB PO SCH (21:38)
[2020-12-14] MEDS: ENOXAPARIN SODIUM 100 MG/1 ML SQ SCH (21:41)
[2020-12-14] MEDS ORDERED: CEFTRIAXONE 1G VIAL ONE (21:50)
[2020-12-14] MEDS: INSULIN GLARGINE 100 UNITS/ML 10 ML VIAL SQ SCH (22:13)
[2020-12-15] VITALS (7 sets, daily range): BP systolic 132–188; BP diastolic 57–94
[2020-12-15 03:53] LABS: ABG OXYGEN SATURATION 88.4 % (95.0-99.0); ABG PCO2 42 mmHg (32-45)
[2020-12-15 06:26] LABS: HEMATOCRIT 30.5 % (36-48); MEAN CORPUSCULAR HEMOGLOBIN 29.6 pg (27.0-33.0); MEAN CORPUSCULAR HGB CONC 31.8 g/dL (32.0-36.0); RED BLOOD CELL COUNT(AUTO) 3.28 MIL/uL (4.00-5.50); RED CELL DISTRIBUTION WIDTH 14.9 % (11.0-15.5); WHITE BLOOD COUNT (AUTO) 9.4 K/uL (4.8-10.8)
[2020-12-15 06:43] LABS: POTASSIUM 4.9 mmol/L (3.5-5.1)
[2020-12-15 06:46] LABS: CREATININE 8.6 mg/dL (0.5-1.5)
[2020-12-15] MEDS: INSULIN HUMULIN R 100 UNIT/ML 3ML SQ SCH ×4 (06:50→21:46)
[2020-12-15] MEDS: ASPIRIN 81MG CHEW TAB PO SCH (08:53)
[2020-12-15] MEDS: SOLU-MEDROL 125MG VIAL IVP SCH ×3 (08:53→21:28)
[2020-12-15] MEDS: PANTOPRAZOLE 40 MG TAB DR PO SCH (08:53)
[2020-12-15] MEDS: GABAPENTIN 100 MG CAPSULE PO SCH ×3 (08:53→21:30)
[2020-12-15] MEDS: LACTULOSE 20 GM/30 ML UDCUP PO SCH ×3 (08:54→21:30)
[2020-12-15] MEDS: SEVELAMER HCL 800 MG TABLET PO SCH ×3 (08:54→21:27)
[2020-12-15] MEDS: CLOPIDOGREL 75MG TAB PO SCH (08:54)
[2020-12-15] MEDS: HYDRALAZINE 25MG TABLET PO SCH ×3 (08:54→21:27)
[2020-12-15] MEDS: OLOPATADINE HCL 0.1% 5ML DROPS OP SCH (08:55)
[2020-12-15] MEDS: FLUTICASONE/VILANTEROL 1 EACH AER.POW.BA IH SCH (08:55)
[2020-12-15] MEDS: INSULIN HUMULIN 70/30 100 UNIT/ML 3ML SQ SCH (09:02)
[2020-12-15] MEDS: AZITHROMYCIN 500MG+NS 250ML 250 ML IV SCH (11:46)
[2020-12-15] MEDS: CEFTRIAXONE 500MG VIAL IV SCH (21:27)
[2020-12-15] MEDS: TRAZODONE HCL 50 MG TAB PO SCH (21:30)
[2020-12-15] MEDS: ENOXAPARIN SODIUM 100 MG/1 ML SQ SCH (21:32)
[2020-12-15] MEDS: INSULIN GLARGINE 100 UNITS/ML 10 ML VIAL SQ SCH (21:46)
[2020-12-16] MEDS: SOLU-MEDROL 125MG VIAL IVP SCH ×4 (03:30→18:49)
[2020-12-16 04:03] VITALS: BP 141/69
[2020-12-16 06:28] LABS: HEMATOCRIT 29.8 % (36-48); MEAN CORPUSCULAR HEMOGLOBIN 29.9 pg (27.0-33.0); MEAN CORPUSCULAR HGB CONC 32.6 g/dL (32.0-36.0); RED BLOOD CELL COUNT(AUTO) 3.24 MIL/uL (4.00-5.50); RED CELL DISTRIBUTION WIDTH 14.6 % (11.0-15.5); WHITE BLOOD COUNT (AUTO) 11.8 K/uL (4.8-10.8)
[2020-12-16 06:50] LABS: POTASSIUM 5.8 mmol/L (3.5-5.1)
[2020-12-16] MEDS: INSULIN HUMULIN R 100 UNIT/ML 3ML SQ SCH ×4 (06:51→22:18)
[2020-12-16 06:53] LABS: CREATININE 9.5 mg/dL (0.5-1.5)
[2020-12-16 08:00] VITALS: BP 146/68
[2020-12-16] MEDS: OLOPATADINE HCL 0.1% 5ML DROPS OP SCH (09:00)
[2020-12-16] MEDS: FLUTICASONE/VILANTEROL 1 EACH AER.POW.BA IH SCH (09:00)
[2020-12-16] MEDS: LACTULOSE 20 GM/30 ML UDCUP PO SCH ×3 (09:41→21:38)
[2020-12-16] MEDS: SEVELAMER HCL 800 MG TABLET PO SCH ×3 (09:42→21:41)
[2020-12-16] MEDS: ASPIRIN 81MG CHEW TAB PO SCH (09:42)
[2020-12-16] MEDS: HYDRALAZINE 25MG TABLET PO SCH ×3 (09:42→21:42)
[2020-12-16] MEDS: CLOPIDOGREL 75MG TAB PO SCH (09:43)
[2020-12-16] MEDS: GABAPENTIN 100 MG CAPSULE PO SCH ×3 (09:43→21:42)
[2020-12-16] MEDS: PANTOPRAZOLE 40 MG TAB DR PO SCH (09:43)
[2020-12-16] MEDS: INSULIN HUMULIN 70/30 100 UNIT/ML 3ML SQ SCH (09:51)
[2020-12-16] MEDS: ACETAMINOPHEN 325 MG TAB PO PRN (10:09)
[2020-12-16 12:00] VITALS: BP 132/79
[2020-12-16] MEDS ORDERED: EPOETIN ALFA-EPBX (ESRD) 10,000 UNIT/ML VIAL SQ SCH (14:00)
[2020-12-16 16:00] VITALS: BP 145/74
[2020-12-16 20:36] VITALS: BP 119/55
[2020-12-16] MEDS: CEFTRIAXONE 500MG VIAL IV SCH (21:39)
[2020-12-16] MEDS: ENOXAPARIN SODIUM 100 MG/1 ML SQ SCH (21:41)
[2020-12-16] MEDS: TRAZODONE HCL 50 MG TAB PO SCH (21:42)
[2020-12-16] MEDS: INSULIN GLARGINE 100 UNITS/ML 10 ML VIAL SQ SCH (22:19)
[2020-12-17 00:28] VITALS: BP 131/70
[2020-12-17] MEDS: SOLU-MEDROL 125MG VIAL IVP SCH ×5 (01:27→22:30)
[2020-12-17 04:50] VITALS: BP 122/60
[2020-12-17 06:02] LABS: BASOPHILS % (AUTO) 0.1 % (0.0-5.0); LYMPHOCYTES % (AUTO) 4.1 % (21.0-51.0); MEAN CORPUSCULAR HEMOGLOBIN 29.6 pg (27.0-33.0); MEAN CORPUSCULAR HGB CONC 32.5 g/dL (32.0-36.0); MEAN CORPUSCULAR VOLUME 91.2 fL (79-99); MONOCYTES % (AUTO) 1.7 % (3.0-13.0); NEUTROPHILS % (AUTO) 92.2 % (40.0-77.0); PLATELET COUNT (AUTO) 577 K/uL (130-400); RED BLOOD CELL COUNT(AUTO) 3.51 MIL/uL (4.00-5.50); RED CELL DISTRIBUTION WIDTH 14.7 % (11.0-15.5); WHITE BLOOD COUNT (AUTO) 14.2 K/uL (4.8-10.8)
[2020-12-17] MEDS: INSULIN HUMULIN R 100 UNIT/ML 3ML SQ SCH ×4 (06:26→22:04)
[2020-12-17 06:27] LABS: ALBUMIN 2.4 g/dL (3.5-5.0); BILIRUBIN,TOTAL 0.2 mg/dL (0.2-1.0); POTASSIUM 5.3 mmol/L (3.5-5.1); TOTAL PROTEIN, SERUM 7.3 g/dL (6.0-8.3)
[2020-12-17] MEDS: INSULIN HUMULIN 70/30 100 UNIT/ML 3ML SQ SCH (08:02)
[2020-12-17 08:32] VITALS: BP 126/57
[2020-12-17] MEDS: FLUTICASONE/VILANTEROL 1 EACH AER.POW.BA IH SCH (09:00)
[2020-12-17] MEDS: OLOPATADINE HCL 0.1% 5ML DROPS OP SCH (10:01)
[2020-12-17] MEDS: PANTOPRAZOLE 40 MG TAB DR PO SCH (10:08)
[2020-12-17] MEDS: HYDRALAZINE 25MG TABLET PO SCH ×3 (10:08→21:50)
[2020-12-17] MEDS: LACTULOSE 20 GM/30 ML UDCUP PO SCH ×3 (10:08→21:49)
[2020-12-17] MEDS: CLOPIDOGREL 75MG TAB PO SCH (10:08)
[2020-12-17] MEDS: GABAPENTIN 100 MG CAPSULE PO SCH ×3 (10:09→21:48)
[2020-12-17] MEDS: SEVELAMER HCL 800 MG TABLET PO SCH ×3 (10:09→21:49)
[2020-12-17] MEDS: ASPIRIN 81MG CHEW TAB PO SCH (10:10)
[2020-12-17 12:16] VITALS: BP 128/55
[2020-12-17 16:53] VITALS: BP 124/50
[2020-12-17 19:25] LABS: ABG BASE EXCESS -2.7 mmol/L (-2.0-3.0); ABG HCO3 21.8 mmol/L (21.0-28.0); ABG OXYGEN SATURATION 90.7 % (95.0-99.0); ABG PCO2 38 mmHg (32-45)
[2020-12-17 20:07] VITALS: BP 142/63
[2020-12-17] MEDS: CEFTRIAXONE 500MG VIAL IV SCH (21:48)
[2020-12-17] MEDS: TRAZODONE HCL 50 MG TAB PO SCH (21:50)
[2020-12-17] MEDS: ENOXAPARIN SODIUM 100 MG/1 ML SQ SCH (21:51)
[2020-12-17] MEDS: INSULIN GLARGINE 100 UNITS/ML 10 ML VIAL SQ SCH (22:04)
[2020-12-17] MEDS ORDERED: PRED20TA3 PO (22:27)
[2020-12-18 00:18] VITALS: BP 151/72
[2020-12-18 04:24] VITALS: BP 130/58
[2020-12-18 04:50] LABS: HEMATOCRIT 30.7 % (36-48); MEAN CORPUSCULAR HEMOGLOBIN 29.9 pg (27.0-33.0); MEAN CORPUSCULAR HGB CONC 32.9 g/dL (32.0-36.0); MEAN CORPUSCULAR VOLUME 90.8 fL (79-99); PLATELET COUNT (AUTO) 579 K/uL (130-400); RED BLOOD CELL COUNT(AUTO) 3.38 MIL/uL (4.00-5.50); RED CELL DISTRIBUTION WIDTH 14.6 % (11.0-15.5); WHITE BLOOD COUNT (AUTO) 14.2 K/uL (4.8-10.8)
[2020-12-18 05:00] LABS: BAND NEUTROPHILS % (MANUAL) 1 % (0-2); LYMPHOCYTES % (MANUAL) 2 % (22-44); MAN.DIFF COMMENT-IMPRESSION MANUAL DIFFERENTIAL; MONOCYTES % (MANUAL) 4 % (2-9); PLATELET MORPHOLOGY COMMENT SLIGHT INCREASED; SEGMENTED NEUTROPHILS % 93 % (40-70)
[2020-12-18 05:03] LABS: CREATININE 8.2 mg/dL (0.5-1.5)
[2020-12-18] MEDS: INSULIN HUMULIN R 100 UNIT/ML 3ML SQ SCH ×3 (06:30→16:30)
[2020-12-18] MEDS: LACTULOSE 20 GM/30 ML UDCUP PO SCH ×2 (08:24→11:21)
[2020-12-18] MEDS: ASPIRIN 81MG CHEW TAB PO SCH (08:25)
[2020-12-18] MEDS: PANTOPRAZOLE 40 MG TAB DR PO SCH (08:25)
[2020-12-18] MEDS: SEVELAMER HCL 800 MG TABLET PO SCH ×2 (08:25→11:21)
[2020-12-18] MEDS: CLOPIDOGREL 75MG TAB PO SCH (08:25)
[2020-12-18] MEDS: HYDRALAZINE 25MG TABLET PO SCH ×2 (08:26→11:20)
[2020-12-18] MEDS: GABAPENTIN 100 MG CAPSULE PO SCH ×2 (08:26→11:21)
[2020-12-18] MEDS: OLOPATADINE HCL 0.1% 5ML DROPS OP SCH (08:27)
[2020-12-18 08:30] VITALS: BP 101/48
[2020-12-18] MEDS: INSULIN HUMULIN 70/30 100 UNIT/ML 3ML SQ SCH (08:32)
[2020-12-18] MEDS: FLUTICASONE/VILANTEROL 1 EACH AER.POW.BA IH SCH (09:00)
[2020-12-18] MEDS: SOLU-MEDROL 125MG VIAL IVP SCH (12:37)
[2020-12-18 12:45] VITALS: BP 118/74
[2020-12-18 16:35] VITALS: BP 110/60
== END 2020-12-18 18:57 | disposition home or self-care (01) | DRG 177 ==
LOC: EDH 03:28 → EDHIP 06:17 → 4BH 12-10 20:30
PROVIDERS: ADMIT Internal Medicine; ATTEND Internal Medicine
PROC: XW13325 Transfusion of Convalescent Plasma (Nonautologous) into Peripheral Vein, Percutaneous Approach, New Technology Group 5 (ICD-10-PCS; principal; 2020-12-09)
PROC: 5A1D70Z Performance of Urinary Filtration, Intermittent, Less than 6 Hours Per Day (ICD-10-PCS; 2020-12-09)
PROC: 5A1D70Z Performance of Urinary Filtration, Intermittent, Less than 6 Hours Per Day (ICD-10-PCS; 2020-12-11)
PROC: 5A1D70Z Performance of Urinary Filtration, Intermittent, Less than 6 Hours Per Day (ICD-10-PCS; 2020-12-13)
PROC: 5A1D70Z Performance of Urinary Filtration, Intermittent, Less than 6 Hours Per Day (ICD-10-PCS; 2020-12-16)
PROC: 5A1D70Z Performance of Urinary Filtration, Intermittent, Less than 6 Hours Per Day (ICD-10-PCS; 2020-12-18)
DX: U07.1 COVID-19 (principal); J96.01 Acute respiratory failure with hypoxia; N18.6 End stage renal disease; J12.82 Pneumonia due to coronavirus disease 2019; I21.4 Non-ST elevation (NSTEMI) myocardial infarction; E87.1 Hypo-osmolality and hyponatremia; I12.0 Hypertensive chronic kidney disease with stage 5 chronic kidney disease or end stage renal disease; E87.2 Acidosis; I24.9 Acute ischemic heart disease, unspecified; E87.70 Fluid overload, unspecified; E78.5 Hyperlipidemia, unspecified; E66.01 Morbid (severe) obesity due to excess calories; E11.51 Type 2 diabetes mellitus with diabetic peripheral angiopathy without gangrene; D64.9 Anemia, unspecified; R94.4 Abnormal results of kidney function studies; E87.5 Hyperkalemia; E11.65 Type 2 diabetes mellitus with hyperglycemia; G47.33 Obstructive sleep apnea (adult) (pediatric); H53.8 Other visual disturbances; E11.22 Type 2 diabetes mellitus with diabetic chronic kidney disease; Z99.2 Dependence on renal dialysis; Z91.19 Patient's noncompliance with other medical treatment and regimen; Z91.11 Patient's noncompliance with dietary regimen; Z68.38 Body mass index [BMI] 38.0-38.9, adult; Z91.15 Patient's noncompliance with renal dialysis; Z89.612 Acquired absence of left leg above knee; Z89.611 Acquired absence of right leg above knee; Z98.891 History of uterine scar from previous surgery
CPT/HCPCS: 36415; 36600; 71045; 71250; 80048; 80053; 80074; 82550; 82728; 82803; 82948; 83605; 83615; 83735; 83874; 83880; 84100; 84145; 84484; 85025; 85027; 85378; 85610; 85730; 86140; 86850; 86900; 86901; 86927; 87040; 87426; 87804; 90935; 93005; 94760; 96365; 96366; 96372; 96375; 99291; G0378; J0456; J0696; J1100; J1200; J1644; J1650; J1815; J2405; J2930; J3490; J7070; Q0162

== ENCOUNTER 2020-12-19 01:54 | Inpatient (IN) | payer BC, OTHER ==
[~2020-12-19] VITALS: Ht 157.5 cm; Wt 91.2 kg
[~2020-12-19 01:54] MED LIST changes: +ASPI-1443 PO; -AZIT500T4 PO; -DEXA6TAB7 PO; +HYDR-4153 PO; +INSU3INS5 SQ; +LACT10SO76 PO; +MELO15TA12 PO; +OLOP5DRO14 OP; +PRED20TA3 PO; +SEVE800T27 PO; +TRAZ-185 PO
[2020-12-19 03:01] LABS: BASOPHILS % (AUTO) 0.1 % (0.0-5.0); EOSINOPHILS % (AUTO) 0.1 % (0.0-8.0); HEMATOCRIT 25.2 % (36-48); LYMPHOCYTES % (AUTO) 8.4 % (21.0-51.0); MEAN CORPUSCULAR HEMOGLOBIN 29.9 pg (27.0-33.0); MEAN CORPUSCULAR HGB CONC 30.2 g/dL (32.0-36.0); MEAN CORPUSCULAR VOLUME 99.2 fL (79-99); MONOCYTES % (AUTO) 5.4 % (3.0-13.0); NEUTROPHILS % (AUTO) 81.5 % (40.0-77.0); PLATELET COUNT (AUTO) 501 K/uL (130-400); RED BLOOD CELL COUNT(AUTO) 2.54 MIL/uL (4.00-5.50); RED CELL DISTRIBUTION WIDTH 15.3 % (11.0-15.5); WHITE BLOOD COUNT (AUTO) 17.4 K/uL (4.8-10.8)
[2020-12-19 03:23] LABS: ALBUMIN 2.1 g/dL (3.5-5.0); BILIRUBIN,TOTAL 0.2 mg/dL (0.2-1.0); CREATININE 6.5 mg/dL (0.5-1.5); CRP QUANTITATIVE 14.5 mg/L (0.00-9.0); MAGNESIUM 3.7 mg/dL (1.80-2.40); POTASSIUM 5.3 mmol/L (3.5-5.1); TOTAL PROTEIN, SERUM 5.9 g/dL (6.0-8.3)
[2020-12-19 03:34] LABS: B-TYPE NATRIURETIC PEPTIDE 183 pg/mL (0-100)
[2020-12-19] MEDS ORDERED: ZOSYN 3.375GM+NS 50ML 50 ML IV SCH (04:15)
[2020-12-19] MEDS: NITROGLYCERIN 1GM OINT 1 INCH/1GM TD SCH ×3 (04:45→20:45)
[2020-12-19] MEDS ORDERED: HYDROCODONE/ACETAMINOPHEN 5/325 MG TAB PO PRN (04:45)
[2020-12-19] MEDS ORDERED: LACTULOSE 20 GM/30 ML UDCUP PO PRN (04:45)
[2020-12-19] MEDS ORDERED: ACETAMINOPHEN 325 MG TAB ONE (05:49)
[2020-12-19] MEDS ORDERED: 0.9% NACL 250ML 250 ML IV ONE (06:46)
[2020-12-19] MEDS: INSULIN HUMULIN R 100 UNIT/ML 3ML SQ SCH ×4 (07:30→21:00)
[2020-12-19 08:36] LABS: ABG BASE EXCESS -3.2 mmol/L (-2.0-3.0); ABG HCO3 22.4 mmol/L (21.0-28.0); ABG OXYGEN SATURATION 98.5 % (95.0-99.0); ABG PCO2 42 mmHg (32-45)
[2020-12-19] MEDS: ENOXAPARIN SODIUM 30 MG/0.3 ML SQ SCH (09:00)
[2020-12-19] MEDS: ASPIRIN 325 MG TABLET PO SCH (09:00)
[2020-12-19] MEDS ORDERED: FAMOTIDINE 20MG TAB PO SCH (09:00)
[2020-12-19] MEDS ORDERED: ENOXAPARIN SODIUM 30 MG/0.3 ML SQ SCH (09:00)
[2020-12-19] MEDS: BENZONATATE 100 MG CAPSULE PO SCH ×3 (09:00→21:00)
[2020-12-19] MEDS: MIDODRINE HCL 5 MG TABLET PO SCH ×3 (09:37→21:00)
[2020-12-19] MEDS ORDERED: ASPIRIN 325 MG TABLET ONE (10:22)
[2020-12-19] MEDS ORDERED: ENOXAPARIN SODIUM 30 MG/0.3 ML SQ ONE (10:22)
[2020-12-19] MEDS ORDERED: BENZONATATE 100 MG CAPSULE PO ONE ×2 (10:22→20:07)
[2020-12-19] MEDS ORDERED: FAMOTIDINE 20MG TAB ONE ×2 (10:22→20:07)
[2020-12-19] MEDS ORDERED: INSULIN HUMULIN R 100 UNIT/ML 3ML ONE ×2 (10:23→12:13)
[2020-12-19] MEDS ORDERED: VANCOMYCIN 1G/250ML KIT 250 ML IV SCH (11:15)
[2020-12-19] MEDS ORDERED: VANCOMYCIN PROTOCOL PER PHARMACY IV SCH (11:15)
[2020-12-19] MEDS ORDERED: ZOSYN 3.375GM+NS 50ML 50 ML IV ONE ×2 (12:13→20:07)
[2020-12-19] MEDS ORDERED: MIDODRINE HCL 5 MG TABLET ONE ×3 (13:37→21:28)
[2020-12-19] MEDS ORDERED: COMPOUND IV REFRIGERATED 1 EACH IVSOLN MISC PRN (14:00)
[2020-12-19] MEDS ORDERED: KAYEXALATE 15GM/60ML PO SCH (14:45)
[2020-12-19] MEDS ORDERED: VANCOMYCIN 1G 1.5 GM in 0.9% NACL 250ML 250 ML IV ONE (15:00)
[2020-12-19] MEDS ORDERED: KAYEXALATE 15GM/60ML ONE (15:09)
[2020-12-19 15:20] LABS: BASOPHILS % (AUTO) 0.1 % (0.0-5.0); EOSINOPHILS % (AUTO) 0.5 % (0.0-8.0); HEMATOCRIT 22.4 % (36-48); LYMPHOCYTES % (AUTO) 15.5 % (21.0-51.0); MEAN CORPUSCULAR HEMOGLOBIN 29.9 pg (27.0-33.0); MEAN CORPUSCULAR HGB CONC 30.8 g/dL (32.0-36.0); MONOCYTES % (AUTO) 4.7 % (3.0-13.0); NEUTROPHILS % (AUTO) 73.9 % (40.0-77.0); NUCLEATED RED BLOOD CELLS 0.1 % (0.0-0.19); PLATELET COUNT (AUTO) 508 K/uL (130-400); RED BLOOD CELL COUNT(AUTO) 2.31 MIL/uL (4.00-5.50); RED CELL DISTRIBUTION WIDTH 15.4 % (11.0-15.5); WHITE BLOOD COUNT (AUTO) 22.2 K/uL (4.8-10.8)
[2020-12-19] MEDS ORDERED: SOLU-MEDROL 40MG VIAL IVP SCH (17:30)
[2020-12-19] MEDS: ZOSYN 3.375GM+NS 50ML 50 ML IV SCH (18:00)
[2020-12-19] MEDS ORDERED: SOLU-MEDROL 40MG VIAL ONE (18:01)
[2020-12-20] MEDS ORDERED: ZOSYN 3.375GM+NS 50ML 50 ML IV ONE (03:55)
[2020-12-20] MEDS: NITROGLYCERIN 1GM OINT 1 INCH/1GM TD SCH ×3 (04:45→20:42)
[2020-12-20] MEDS: ZOSYN 3.375GM+NS 50ML 50 ML IV SCH ×2 (06:00→17:32)
[2020-12-20] MEDS: INSULIN HUMULIN R 100 UNIT/ML 3ML SQ SCH ×4 (07:30→20:42)
[2020-12-20 08:04] LABS: BASOPHILS % (AUTO) 0.1 % (0.0-5.0); MEAN CORPUSCULAR HEMOGLOBIN 30.9 pg (27.0-33.0); MEAN CORPUSCULAR VOLUME 96.6 fL (79-99); MONOCYTES % (AUTO) 2.9 % (3.0-13.0); NEUTROPHILS % (AUTO) 85.7 % (40.0-77.0); NUCLEATED RED BLOOD CELLS 0.2 % (0.0-0.19); PLATELET COUNT (AUTO) 524 K/uL (130-400); RED BLOOD CELL COUNT(AUTO) 2.07 MIL/uL (4.00-5.50); RED CELL DISTRIBUTION WIDTH 15.6 % (11.0-15.5); WHITE BLOOD COUNT (AUTO) 29.1 K/uL (4.8-10.8)
[2020-12-20 08:20] LABS: CREATININE 7.4 mg/dL (0.5-1.5); MAGNESIUM 2.4 mg/dL (1.80-2.40); PHOSPHORUS 8.3 mg/dL (2.5-4.9); POTASSIUM 4.8 mmol/L (3.5-5.1)
[2020-12-20] MEDS ORDERED: 0.9%NACL 1000ML 1,000 ML IV ONE (08:56)
[2020-12-20] MEDS: BENZONATATE 100 MG CAPSULE PO SCH ×3 (09:00→20:40)
[2020-12-20] MEDS: ENOXAPARIN SODIUM 30 MG/0.3 ML SQ SCH (09:00)
[2020-12-20] MEDS: MIDODRINE HCL 5 MG TABLET PO SCH ×3 (09:00→20:40)
[2020-12-20] MEDS: ASPIRIN 325 MG TABLET PO SCH (09:00)
[2020-12-20] MEDS: SOLU-MEDROL 40MG VIAL IVP SCH (09:00)
[2020-12-20] MEDS ORDERED: FAMOTIDINE 20MG TAB PO SCH (09:00)
[2020-12-20] MEDS ORDERED: ASPIRIN 325 MG TABLET ONE (12:02)
[2020-12-20] MEDS ORDERED: SOLU-MEDROL 40MG VIAL ONE (12:02)
[2020-12-20] MEDS ORDERED: MIDODRINE HCL 5 MG TABLET ONE (12:03)
[2020-12-20] MEDS ORDERED: BENZONATATE 100 MG CAPSULE PO ONE (12:03)
[2020-12-20] MEDS ORDERED: ENOXAPARIN SODIUM 40 MG/0.4 ML SYRINGE SQ ONE (12:03)
[2020-12-20] MEDS ORDERED: FAMOTIDINE 20MG VIAL IV ONE (12:04)
[2020-12-20 16:51] VITALS: BP 151/42
[2020-12-20 20:36] VITALS: BP 117/37
[2020-12-20] MEDS ORDERED: DOXY100T2 PO (22:02)
[2020-12-20] MEDS ORDERED: TIMO.5OS OS (22:02)
[2020-12-20] MEDS ORDERED: LATA7.5D OP (22:02)
[2020-12-20] MEDS ORDERED: TRAZ-185 PO (22:02)
[2020-12-20] MEDS ORDERED: LACT10SO5 PO (22:02)
[2020-12-20] MEDS ORDERED: BRIM5DRO4 OP (22:02)
[2020-12-20] MEDS ORDERED: DEXA4TAB PO (22:02)
[2020-12-20] MEDS ORDERED: SEVE0.8P3 PO (22:02)
[2020-12-20] MEDS ORDERED: OLOP5DRO14 OP (22:02)
[2020-12-21 01:07] VITALS: BP 138/41
[2020-12-21 03:51] VITALS: BP 150/32
[2020-12-21] MEDS: NITROGLYCERIN 1GM OINT 1 INCH/1GM TD SCH ×3 (04:13→21:20)
[2020-12-21] MEDS: ZOSYN 3.375GM+NS 50ML 50 ML IV SCH ×2 (05:27→16:48)
[2020-12-21] MEDS: INSULIN HUMULIN R 100 UNIT/ML 3ML SQ SCH ×4 (05:57→21:19)
[2020-12-21 07:31] LABS: BASOPHILS % (AUTO) 0.2 % (0.0-5.0); EOSINOPHILS % (AUTO) 0.2 % (0.0-8.0); HEMATOCRIT 23.9 % (36-48); LYMPHOCYTES % (AUTO) 8.8 % (21.0-51.0); MEAN CORPUSCULAR HEMOGLOBIN 30.6 pg (27.0-33.0); MEAN CORPUSCULAR HGB CONC 33.1 g/dL (32.0-36.0); MEAN CORPUSCULAR VOLUME 92.6 fL (79-99); MONOCYTES % (AUTO) 5.1 % (3.0-13.0); NEUTROPHILS % (AUTO) 82.4 % (40.0-77.0); NUCLEATED RED BLOOD CELLS 0.5 % (0.0-0.19); PLATELET COUNT (AUTO) 371 K/uL (130-400); RED BLOOD CELL COUNT(AUTO) 2.58 MIL/uL (4.00-5.50); RED CELL DISTRIBUTION WIDTH 16.4 % (11.0-15.5); WHITE BLOOD COUNT (AUTO) 24.2 K/uL (4.8-10.8)
[2020-12-21 07:46] LABS: CREATININE 5.3 mg/dL (0.5-1.5); POTASSIUM 3.2 mmol/L (3.5-5.1)
[2020-12-21 08:00] VITALS: BP_SYST 140; BP_DIAS 41; BP_DIAS 48
[2020-12-21] MEDS: MIDODRINE HCL 5 MG TABLET PO SCH ×3 (08:47→21:00)
[2020-12-21] MEDS: ASPIRIN 325 MG TABLET PO SCH (08:47)
[2020-12-21] MEDS: SOLU-MEDROL 40MG VIAL IVP SCH (08:47)
[2020-12-21] MEDS: BENZONATATE 100 MG CAPSULE PO SCH ×3 (08:47→21:20)
[2020-12-21] MEDS: ENOXAPARIN SODIUM 30 MG/0.3 ML SQ SCH (08:48)
[2020-12-21 12:56] VITALS: BP 168/31
[2020-12-21] MEDS: PANTOPRAZOLE 40 MG/VIAL IVP SCH (13:01)
[2020-12-21 16:58] VITALS: BP 140/28
[2020-12-21 20:00] VITALS: BP 168/81
[2020-12-21] MEDS ORDERED: VANCOMYCIN 1G/250ML KIT 250 ML IV ONE (20:00)
[2020-12-22] VITALS (7 sets, daily range): BP systolic 113–163; BP diastolic 36–59
[2020-12-22] MEDS: NITROGLYCERIN 1GM OINT 1 INCH/1GM TD SCH ×3 (04:54→20:14)
[2020-12-22] MEDS: ZOSYN 3.375GM+NS 50ML 50 ML IV SCH ×2 (05:06→17:14)
[2020-12-22] MEDS: INSULIN HUMULIN R 100 UNIT/ML 3ML SQ SCH ×4 (05:55→21:20)
[2020-12-22 06:33] LABS: HEMATOCRIT 23.9 % (36-48); MEAN CORPUSCULAR HEMOGLOBIN 30.7 pg (27.0-33.0); MEAN CORPUSCULAR HGB CONC 33.5 g/dL (32.0-36.0); MEAN CORPUSCULAR VOLUME 91.6 fL (79-99); NUCLEATED RED BLOOD CELLS 0.2 % (0.0-0.19); RED BLOOD CELL COUNT(AUTO) 2.61 MIL/uL (4.00-5.50); RED CELL DISTRIBUTION WIDTH 16.1 % (11.0-15.5); WHITE BLOOD COUNT (AUTO) 18.1 K/uL (4.8-10.8)
[2020-12-22 06:50] LABS: CREATININE 6.9 mg/dL (0.5-1.5); POTASSIUM 3.9 mmol/L (3.5-5.1)
[2020-12-22] MEDS: SOLU-MEDROL 40MG VIAL IVP SCH (09:25)
[2020-12-22] MEDS: BENZONATATE 100 MG CAPSULE PO SCH ×3 (09:25→20:13)
[2020-12-22] MEDS: PANTOPRAZOLE 40 MG/VIAL IVP SCH (09:25)
[2020-12-22] MEDS: MIDODRINE HCL 5 MG TABLET PO SCH ×3 (09:26→20:07)
[2020-12-22] MEDS: PANTOPRAZOLE 40 MG TAB DR PO SCH (17:15)
[2020-12-22] MEDS: INSULIN GLARGINE 100 UNITS/ML 10 ML VIAL SQ SCH (21:21)
[2020-12-23] VITALS (7 sets, daily range): BP systolic 97–180; BP diastolic 39–66
[2020-12-23 04:45] LABS: HEMATOCRIT 23.1 % (36-48); MEAN CORPUSCULAR HEMOGLOBIN 29.9 pg (27.0-33.0); MEAN CORPUSCULAR HGB CONC 32.5 g/dL (32.0-36.0); NUCLEATED RED BLOOD CELLS 0.1 % (0.0-0.19); RED BLOOD CELL COUNT(AUTO) 2.51 MIL/uL (4.00-5.50); RED CELL DISTRIBUTION WIDTH 16.5 % (11.0-15.5); WHITE BLOOD COUNT (AUTO) 15.5 K/uL (4.8-10.8)
[2020-12-23] MEDS: NITROGLYCERIN 1GM OINT 1 INCH/1GM TD SCH ×3 (04:45→21:03)
[2020-12-23 05:12] LABS: CREATININE 7.9 mg/dL (0.5-1.5)
[2020-12-23] MEDS: ZOSYN 3.375GM+NS 50ML 50 ML IV SCH ×2 (05:14→17:04)
[2020-12-23] MEDS: INSULIN HUMULIN R 100 UNIT/ML 3ML SQ SCH ×4 (06:36→21:49)
[2020-12-23] MEDS: PANTOPRAZOLE 40 MG TAB DR PO SCH ×2 (06:38→17:04)
[2020-12-23] MEDS: MIDODRINE HCL 5 MG TABLET PO SCH ×3 (08:44→21:06)
[2020-12-23] MEDS: SOLU-MEDROL 40MG VIAL IVP SCH (08:45)
[2020-12-23] MEDS: BENZONATATE 100 MG CAPSULE PO SCH ×3 (08:45→21:06)
[2020-12-23] MEDS ORDERED: ACETAMINOPHEN 325 MG TAB PO PRN (09:30)
[2020-12-23] MEDS ORDERED: HEPARIN 5,000 UNIT VIAL IJ PRN ×2 (09:30)
[2020-12-23] MEDS ORDERED: 0.9%NACL 1000ML IV PRN (09:30)
[2020-12-23] MEDS ORDERED: NITROGLYCERIN 0.4 MG SL TAB SL PRN (09:30)
[2020-12-23] MEDS ORDERED: 0.9%NACL 1000ML 1,000 ML IV PRN (09:30)
[2020-12-23] MEDS ORDERED: ALBUMIN FOR BP SUPPORT MISC PRN (09:30)
[2020-12-23] MEDS ORDERED: LIDOCAINE HCL-MPF 1% 2ML VIAL IJ PRN (09:30)
[2020-12-23] MEDS: VANCOMYCIN 750MG + NS 250 ML IV SCH ×2 (13:08)
[2020-12-23] MEDS ORDERED: TRAZODONE HCL 50 MG TAB PO SCH (16:45)
[2020-12-23] MEDS: LACTULOSE 20 GM/30 ML UDCUP PO SCH (21:00)
[2020-12-23] MEDS ORDERED: NON-FORMULARY MEDICATION 1 EACH (Lactulose 20 GM) PO SCH (21:00)
[2020-12-23] MEDS ORDERED: SEVELAMER CARBONATE 0.8 GM PO SCH (21:00)
[2020-12-23] MEDS: OLOPATADINE HCL 0.1% 5ML DROPS OP SCH (21:03)
[2020-12-23] MEDS: TIMOLOL MALEATE 0.5% 5 ML BOTTLE OS SCH (21:04)
[2020-12-23] MEDS: LATANOPROST 2.5 ML DROPS OU SCH (21:04)
[2020-12-23] MEDS: HYDRALAZINE 25MG TABLET PO SCH (21:06)
[2020-12-23] MEDS: EPOETIN ALFA-EPBX (ESRD) 10,000 UNIT/ML VIAL SQ SCH (21:06)
[2020-12-23] MEDS: INSULIN GLARGINE 100 UNITS/ML 10 ML VIAL SQ SCH (21:16)
[2020-12-24 00:25] VITALS: BP 165/40
[2020-12-24 04:29] VITALS: BP 144/37
[2020-12-24] MEDS: NITROGLYCERIN 1GM OINT 1 INCH/1GM TD SCH ×3 (04:53→21:04)
[2020-12-24] MEDS: ZOSYN 3.375GM+NS 50ML 50 ML IV SCH ×2 (04:53→17:43)
[2020-12-24 05:07] LABS: BASOPHILS % (AUTO) 0.1 % (0.0-5.0); EOSINOPHILS % (AUTO) 1.5 % (0.0-8.0); HEMATOCRIT 24.8 % (36-48); MEAN CORPUSCULAR HEMOGLOBIN 30.3 pg (27.0-33.0); MEAN CORPUSCULAR HGB CONC 32.3 g/dL (32.0-36.0); MEAN CORPUSCULAR VOLUME 93.9 fL (79-99); MONOCYTES % (AUTO) 7.5 % (3.0-13.0); NEUTROPHILS % (AUTO) 79.7 % (40.0-77.0); PLATELET COUNT (AUTO) 357 K/uL (130-400); RED BLOOD CELL COUNT(AUTO) 2.64 MIL/uL (4.00-5.50); RED CELL DISTRIBUTION WIDTH 16.6 % (11.0-15.5); WHITE BLOOD COUNT (AUTO) 13.2 K/uL (4.8-10.8)
[2020-12-24 05:27] LABS: ALBUMIN 2.3 g/dL (3.5-5.0); BILIRUBIN,TOTAL 0.3 mg/dL (0.2-1.0); CREATININE 6.2 mg/dL (0.5-1.5); MAGNESIUM 3.1 mg/dL (1.80-2.40); PHOSPHORUS 7.2 mg/dL (2.5-4.9); POTASSIUM 4.2 mmol/L (3.5-5.1); TOTAL PROTEIN, SERUM 6.1 g/dL (6.0-8.3)
[2020-12-24] MEDS: INSULIN HUMULIN R 100 UNIT/ML 3ML SQ SCH ×4 (05:43→21:24)
[2020-12-24] MEDS: PANTOPRAZOLE 40 MG TAB DR PO SCH ×2 (06:12→16:26)
[2020-12-24 07:36] VITALS: BP 153/34
[2020-12-24] MEDS ORDERED: NON-FORMULARY MEDICATION 1 EACH (Latanoprost/Pf (Latanoprost 0.005% Eye Drop) 1 DROP) OP SCH (09:00)
[2020-12-24] MEDS: HYDRALAZINE 25MG TABLET PO SCH ×3 (09:00→21:05)
[2020-12-24] MEDS: MIDODRINE HCL 5 MG TABLET PO SCH ×3 (09:00→21:00)
[2020-12-24] MEDS: SEVELAMER HCL 800 MG TABLET PO SCH ×3 (09:01→16:26)
[2020-12-24] MEDS: ASPIRIN 81 MG EC TAB PO SCH (09:02)
[2020-12-24] MEDS: BENZONATATE 100 MG CAPSULE PO SCH ×3 (09:02→21:04)
[2020-12-24] MEDS: LACTULOSE 20 GM/30 ML UDCUP PO SCH ×3 (09:02→21:02)
[2020-12-24] MEDS: BRIMONIDINE TARTRATE 0.2% 5 ML BOTTLE OP SCH (11:48)
[2020-12-24 11:52] VITALS: BP 175/38
[2020-12-24] MEDS: SOLU-MEDROL 40MG VIAL IVP SCH (14:11)
[2020-12-24 15:33] VITALS: BP 156/71
[2020-12-24 20:24] VITALS: BP 160/79
[2020-12-24] MEDS: LATANOPROST 2.5 ML DROPS OU SCH (21:01)
[2020-12-24] MEDS: OLOPATADINE HCL 0.1% 5ML DROPS OP SCH (21:01)
[2020-12-24] MEDS: TIMOLOL MALEATE 0.5% 5 ML BOTTLE OS SCH (21:02)
[2020-12-24] MEDS: INSULIN GLARGINE 100 UNITS/ML 10 ML VIAL SQ SCH (21:23)
[2020-12-25] VITALS (7 sets, daily range): BP systolic 120–157; BP diastolic 54–76
[2020-12-25] MEDS: NITROGLYCERIN 1GM OINT 1 INCH/1GM TD SCH ×3 (06:41→22:04)
[2020-12-25] MEDS: PANTOPRAZOLE 40 MG TAB DR PO SCH ×2 (06:41→17:28)
[2020-12-25] MEDS: ZOSYN 3.375GM+NS 50ML 50 ML IV SCH ×2 (06:41→17:28)
[2020-12-25] MEDS: INSULIN HUMULIN R 100 UNIT/ML 3ML SQ SCH ×4 (06:42→22:12)
[2020-12-25] MEDS: MIDODRINE HCL 5 MG TABLET PO SCH ×3 (09:44→21:00)
[2020-12-25] MEDS: BENZONATATE 100 MG CAPSULE PO SCH ×3 (09:44→21:47)
[2020-12-25] MEDS: ASPIRIN 81 MG EC TAB PO SCH (09:44)
[2020-12-25] MEDS: LACTULOSE 20 GM/30 ML UDCUP PO SCH ×3 (09:44→21:00)
[2020-12-25] MEDS: HYDRALAZINE 25MG TABLET PO SCH ×3 (09:44→21:51)
[2020-12-25] MEDS: BRIMONIDINE TARTRATE 0.2% 5 ML BOTTLE OP SCH (09:45)
[2020-12-25] MEDS: SOLU-MEDROL 40MG VIAL IVP SCH (09:48)
[2020-12-25] MEDS: SEVELAMER HCL 800 MG TABLET PO SCH ×3 (09:51→17:28)
[2020-12-25] MEDS: VANCOMYCIN 750MG + NS 250 ML IV SCH ×2 (15:52)
[2020-12-25] MEDS: EPOETIN ALFA-EPBX (ESRD) 10,000 UNIT/ML VIAL SQ SCH (21:47)
[2020-12-25] MEDS: LATANOPROST 2.5 ML DROPS OU SCH (21:53)
[2020-12-25] MEDS: TIMOLOL MALEATE 0.5% 5 ML BOTTLE OS SCH (21:53)
[2020-12-25] MEDS: OLOPATADINE HCL 0.1% 5ML DROPS OP SCH (21:53)
[2020-12-25] MEDS: INSULIN GLARGINE 100 UNITS/ML 10 ML VIAL SQ SCH (22:13)
[2020-12-26] VITALS (7 sets, daily range): BP systolic 136–163; BP diastolic 47–60
[2020-12-26 03:22] LABS: ABG HCO3 24.6 mmol/L (21.0-28.0); ABG OXYGEN SATURATION 94.9 % (95.0-99.0); ABG PCO2 36 mmHg (32-45)
[2020-12-26] MEDS: ZOSYN 3.375GM+NS 50ML 50 ML IV SCH (05:38)
[2020-12-26] MEDS: NITROGLYCERIN 1GM OINT 1 INCH/1GM TD SCH ×3 (05:39→22:55)
[2020-12-26] MEDS: PANTOPRAZOLE 40 MG TAB DR PO SCH ×2 (05:45→15:49)
[2020-12-26] MEDS: INSULIN HUMULIN R 100 UNIT/ML 3ML SQ SCH ×4 (05:45→22:58)
[2020-12-26 05:57] LABS: MEAN CORPUSCULAR HEMOGLOBIN 30.9 pg (27.0-33.0); MEAN CORPUSCULAR HGB CONC 32.4 g/dL (32.0-36.0); MEAN CORPUSCULAR VOLUME 95.4 fL (79-99); RED BLOOD CELL COUNT(AUTO) 2.62 MIL/uL (4.00-5.50); RED CELL DISTRIBUTION WIDTH 17.9 % (11.0-15.5); WHITE BLOOD COUNT (AUTO) 11.1 K/uL (4.8-10.8)
[2020-12-26 06:13] LABS: CREATININE 6.8 mg/dL (0.5-1.5); POTASSIUM 4.4 mmol/L (3.5-5.1)
[2020-12-26] MEDS: SEVELAMER HCL 800 MG TABLET PO SCH ×3 (07:08→17:20)
[2020-12-26] MEDS: ASPIRIN 81 MG EC TAB PO SCH (08:30)
[2020-12-26] MEDS: SOLU-MEDROL 40MG VIAL IVP SCH (08:30)
[2020-12-26] MEDS: MIDODRINE HCL 5 MG TABLET PO SCH ×3 (08:30→21:00)
[2020-12-26] MEDS: HYDRALAZINE 25MG TABLET PO SCH ×3 (08:30→23:14)
[2020-12-26] MEDS: BENZONATATE 100 MG CAPSULE PO SCH ×3 (08:30→22:55)
[2020-12-26] MEDS: LACTULOSE 20 GM/30 ML UDCUP PO SCH ×3 (08:32→21:00)
[2020-12-26] MEDS: BRIMONIDINE TARTRATE 0.2% 5 ML BOTTLE OP SCH (08:32)
[2020-12-26] MEDS: INSULIN GLARGINE 100 UNITS/ML 10 ML VIAL SQ SCH (22:57)
[2020-12-26] MEDS: OLOPATADINE HCL 0.1% 5ML DROPS OP SCH (23:15)
[2020-12-26] MEDS: LATANOPROST 2.5 ML DROPS OU SCH (23:16)
[2020-12-26] MEDS: TIMOLOL MALEATE 0.5% 5 ML BOTTLE OS SCH (23:16)
[2020-12-27 00:51] VITALS: BP 146/56
[2020-12-27 04:00] VITALS: BP 142/45
[2020-12-27 05:44] LABS: HEMATOCRIT 21.1 % (36-48); MEAN CORPUSCULAR HEMOGLOBIN 30.8 pg (27.0-33.0); MEAN CORPUSCULAR HGB CONC 32.2 g/dL (32.0-36.0); MEAN CORPUSCULAR VOLUME 95.5 fL (79-99); RED BLOOD CELL COUNT(AUTO) 2.21 MIL/uL (4.00-5.50); RED CELL DISTRIBUTION WIDTH 18.3 % (11.0-15.5); WHITE BLOOD COUNT (AUTO) 9.9 K/uL (4.8-10.8)
[2020-12-27 06:01] LABS: POTASSIUM 4.6 mmol/L (3.5-5.1)
[2020-12-27 06:17] LABS: CREATININE 8.4 mg/dL (0.5-1.5)
[2020-12-27] MEDS: PANTOPRAZOLE 40 MG TAB DR PO SCH ×2 (06:21→16:47)
[2020-12-27] MEDS: INSULIN HUMULIN R 100 UNIT/ML 3ML SQ SCH ×3 (06:22→16:30)
[2020-12-27] MEDS: NITROGLYCERIN 1GM OINT 1 INCH/1GM TD SCH ×2 (06:25→13:50)
[2020-12-27 06:42] LABS: HEMATOCRIT 23.8 % (36-48)
[2020-12-27 08:12] VITALS: BP 153/57
[2020-12-27] MEDS: BRIMONIDINE TARTRATE 0.2% 5 ML BOTTLE OP SCH (09:00)
[2020-12-27] MEDS ORDERED: PANT40TA PO (09:31)
[2020-12-27] MEDS ORDERED: MIDO5TAB4 PO (09:31)
[2020-12-27 11:32] VITALS: BP 116/61
[2020-12-27] MEDS: SEVELAMER HCL 800 MG TABLET PO SCH ×3 (12:00→16:49)
[2020-12-27] MEDS: HYDRALAZINE 25MG TABLET PO SCH ×2 (13:50→14:00)
[2020-12-27] MEDS: ASPIRIN 81 MG EC TAB PO SCH (13:51)
[2020-12-27] MEDS: BENZONATATE 100 MG CAPSULE PO SCH ×2 (13:51→14:00)
[2020-12-27] MEDS: LACTULOSE 20 GM/30 ML UDCUP PO SCH ×2 (13:53→14:00)
[2020-12-27] MEDS: MIDODRINE HCL 5 MG TABLET PO SCH ×2 (13:57→14:00)
[2020-12-27 16:00] VITALS: BP 151/37
== END 2020-12-27 19:58 | disposition home or self-care (01) | DRG 177 ==
LOC: EDH 01:54 → OBSVTOIN 04:05 → EDHIP 04:05 → 4BH 12-20 13:30
PROVIDERS: ADMIT Internal Medicine Critical Care Medicine; ATTEND Internal Medicine Critical Care Medicine
PROC: 5A09357 Assistance with Respiratory Ventilation, Less than 24 Consecutive Hours, Continuous Positive Airway Pressure (ICD-10-PCS; 2020-12-19)
PROC: 30233N1 Transfusion of Nonautologous Red Blood Cells into Peripheral Vein, Percutaneous Approach (ICD-10-PCS; principal; 2020-12-20)
PROC: 5A1D70Z Performance of Urinary Filtration, Intermittent, Less than 6 Hours Per Day (ICD-10-PCS; 2020-12-20)
PROC: 5A09357 Assistance with Respiratory Ventilation, Less than 24 Consecutive Hours, Continuous Positive Airway Pressure (ICD-10-PCS; 2020-12-20)
PROC: 5A09357 Assistance with Respiratory Ventilation, Less than 24 Consecutive Hours, Continuous Positive Airway Pressure (ICD-10-PCS; 2020-12-21)
PROC: 5A1D70Z Performance of Urinary Filtration, Intermittent, Less than 6 Hours Per Day (ICD-10-PCS; 2020-12-23)
PROC: 5A1D70Z Performance of Urinary Filtration, Intermittent, Less than 6 Hours Per Day (ICD-10-PCS; 2020-12-25)
PROC: 5A1D70Z Performance of Urinary Filtration, Intermittent, Less than 6 Hours Per Day (ICD-10-PCS; 2020-12-27)
DX: U07.1 COVID-19 (principal); A41.89 Other specified sepsis; N18.6 End stage renal disease; J96.01 Acute respiratory failure with hypoxia; J12.82 Pneumonia due to coronavirus disease 2019; K92.2 Gastrointestinal hemorrhage, unspecified; E66.2 Morbid (severe) obesity with alveolar hypoventilation; E87.1 Hypo-osmolality and hyponatremia; I12.0 Hypertensive chronic kidney disease with stage 5 chronic kidney disease or end stage renal disease; J81.1 Chronic pulmonary edema; D63.8 Anemia in other chronic diseases classified elsewhere; E87.70 Fluid overload, unspecified; E11.22 Type 2 diabetes mellitus with diabetic chronic kidney disease; I25.10 Atherosclerotic heart disease of native coronary artery without angina pectoris; E78.5 Hyperlipidemia, unspecified; E11.51 Type 2 diabetes mellitus with diabetic peripheral angiopathy without gangrene; E86.9 Volume depletion, unspecified; E87.5 Hyperkalemia; E87.6 Hypokalemia; H91.90 Unspecified hearing loss, unspecified ear; R53.81 Other malaise; K59.00 Constipation, unspecified; Z68.35 Body mass index [BMI] 35.0-35.9, adult; Z88.8 Allergy status to other drugs, medicaments and biological substances; Z99.2 Dependence on renal dialysis; Z99.81 Dependence on supplemental oxygen; Z89.612 Acquired absence of left leg above knee; Z89.611 Acquired absence of right leg above knee; Z79.4 Long term (current) use of insulin; Z79.899 Other long term (current) drug therapy
CPT/HCPCS: 36415; 36430; 36600; 70450; 71045; 80048; 80053; 80202; 82140; 82270; 82728; 82803; 82948; 83540; 83550; 83605; 83735; 83880; 84100; 84145; 84484; 85014; 85018; 85025; 85027; 86140; 86850; 86900; 86901; 86923; 87040; 87426; 90935; 93005; 94660; 94760; C9113; G0378; J1650; J1815; J2543; J2920; J3370; J3490; J7030; J7050; P9016; U0003

== ENCOUNTER 2021-01-14 16:15 | Inpatient (IN) | payer OTHER ==
[~2021-01-14] VITALS: Ht 127 cm; Wt 85.0 kg
[~2021-01-14 16:15] MED LIST changes: +BRIM5DRO4 OP; -HYDR-4153 PO; +LACT10SO5 PO; -LACT10SO76 PO; +LATA7.5D OP; -MELO15TA12 PO; +MIDO5TAB4 PO; +PANT40TA PO; -PRED20TA3 PO; +SEVE0.8P3 PO; -SEVE800T27 PO; +TIMO.5OS OS; -TRAZ-185 PO
[2021-01-14 17:06] LABS: BASOPHILS % (AUTO) 0.9 % (0.0-5.0); EOSINOPHILS % (AUTO) 2.8 % (0.0-8.0); HEMATOCRIT 24.7 % (36-48); LYMPHOCYTES % (AUTO) 18.1 % (21.0-51.0); MEAN CORPUSCULAR HEMOGLOBIN 30.4 pg (27.0-33.0); MEAN CORPUSCULAR HGB CONC 31.6 g/dL (32.0-36.0); MEAN CORPUSCULAR VOLUME 96.1 fL (79-99); MONOCYTES % (AUTO) 8.2 % (3.0-13.0); NEUTROPHILS % (AUTO) 68.8 % (40.0-77.0); PLATELET COUNT (AUTO) 391 K/uL (130-400); RED BLOOD CELL COUNT(AUTO) 2.57 MIL/uL (4.00-5.50); RED CELL DISTRIBUTION WIDTH 15.5 % (11.0-15.5); WHITE BLOOD COUNT (AUTO) 7.5 K/uL (4.8-10.8)
[2021-01-14 17:15] LABS: CREATININE 4.5 mg/dL (0.5-1.5); POTASSIUM 4.4 mmol/L (3.5-5.1)
[2021-01-14 17:17] LABS: PROTHROMBIN TIME 10.9 SEC (9.6-11.6)
[2021-01-14 17:18] LABS: PARTIAL THROMBOPLASTIN TIME 26.4 SEC (26.3-35.5)
[2021-01-14 17:23] LABS: ALBUMIN 3.4 g/dL (3.5-5.0); BILIRUBIN,TOTAL 0.4 mg/dL (0.2-1.0); TOTAL PROTEIN, SERUM 7.9 g/dL (6.0-8.3)
[2021-01-14] MEDS ORDERED: SODIUM CHLORIDE 0.9% 10 ML VIAL IVP PRN (19:45)
[2021-01-14] MEDS ORDERED: CLONIDINE HCL 0.1 MG TABLET PO PRN (19:45)
[2021-01-14] MEDS: INSULIN R PO SS1 SQ SCH (21:00)
[2021-01-15] MEDS ORDERED: CLONIDINE HCL 0.1 MG TABLET ONE (01:41)
[2021-01-15 09:42] LABS: TROPONIN I 0.14 ng/mL (0.00-0.06)
[2021-01-15] MEDS: INSULIN R PO SS1 SQ SCH (21:00)
[2021-01-16] VITALS (8 sets, daily range): BP systolic 130–178; BP diastolic 43–86
[2021-01-16 05:01] LABS: HEMATOCRIT 25.4 % (36-48); MEAN CORPUSCULAR HEMOGLOBIN 30.4 pg (27.0-33.0); MEAN CORPUSCULAR HGB CONC 31.1 g/dL (32.0-36.0); MEAN CORPUSCULAR VOLUME 97.7 fL (79-99); NUCLEATED RED BLOOD CELLS 0.4 % (0.0-0.19); RED BLOOD CELL COUNT(AUTO) 2.6 MIL/uL (4.00-5.50); RED CELL DISTRIBUTION WIDTH 15.4 % (11.0-15.5); WHITE BLOOD COUNT (AUTO) 8.1 K/uL (4.8-10.8)
[2021-01-16 05:15] LABS: ALBUMIN 3.5 g/dL (3.5-5.0); BILIRUBIN,TOTAL 0.3 mg/dL (0.2-1.0); CREATININE 6.7 mg/dL (0.5-1.5); MAGNESIUM 2.3 mg/dL (1.80-2.40); PHOSPHORUS 6.3 mg/dL (2.5-4.9); TOTAL PROTEIN, SERUM 7.7 g/dL (6.0-8.3)
[2021-01-16] MEDS: INSULIN R PO SS1 SQ SCH ×3 (06:09→20:50)
[2021-01-16] MEDS ORDERED: REGADENOSON 0.4 MG/5 ML PF SYG IVP SCH (12:00)
[2021-01-16] MEDS ORDERED: LACTULOSE 20 GM/30 ML UDCUP PO PRN (14:15)
[2021-01-16] MEDS ORDERED: LOSARTAN 50 MG TABLET PO SCH (15:00)
[2021-01-16] MEDS ORDERED: CLOPIDOGREL BISULFATE 75 MG TAB PO SCH (15:00)
[2021-01-16] MEDS ORDERED: ASPIRIN 81MG TAB.CHEW PO SCH (15:00)
[2021-01-16] MEDS ORDERED: LOSARTAN 50 MG TABLET ONE (20:35)
[2021-01-16] MEDS ORDERED: ASPIRIN 81MG TAB.CHEW ONE (20:36)
[2021-01-16] MEDS ORDERED: CLOPIDOGREL BISULFATE 75 MG TAB ONE (20:37)
[2021-01-16] MEDS: ATORVASTATIN CALCIUM 40 MG TABLET PO SCH (20:45)
[2021-01-16] MEDS: METOPROLOL TARTRATE 25 MG TAB PO SCH (20:45)
[2021-01-17] MEDS ORDERED: PHARMACY COMMUNICATION MISC SCH (02:15)
[2021-01-17 04:14] VITALS: BP 156/82
[2021-01-17 04:51] LABS: BASOPHILS % (AUTO) 1.1 % (0.0-5.0); EOSINOPHILS % (AUTO) 2.4 % (0.0-8.0); HEMATOCRIT 25.8 % (36-48); LYMPHOCYTES % (AUTO) 17.5 % (21.0-51.0); MEAN CORPUSCULAR HEMOGLOBIN 30.4 pg (27.0-33.0); MEAN CORPUSCULAR HGB CONC 31.8 g/dL (32.0-36.0); MEAN CORPUSCULAR VOLUME 95.6 fL (79-99); MONOCYTES % (AUTO) 12.1 % (3.0-13.0); NEUTROPHILS % (AUTO) 65.7 % (40.0-77.0); NUCLEATED RED BLOOD CELLS 0.7 % (0.0-0.19); PLATELET COUNT (AUTO) 401 K/uL (130-400); RED CELL DISTRIBUTION WIDTH 15.3 % (11.0-15.5); WHITE BLOOD COUNT (AUTO) 7.6 K/uL (4.8-10.8)
[2021-01-17 05:17] LABS: ALBUMIN 3.3 g/dL (3.5-5.0); BILIRUBIN,TOTAL 0.4 mg/dL (0.2-1.0); CREATININE 4.8 mg/dL (0.5-1.5); MAGNESIUM 2.9 mg/dL (1.80-2.40); PHOSPHORUS 4.2 mg/dL (2.5-4.9); POTASSIUM 4.4 mmol/L (3.5-5.1); THYROID STIMULATING HORMONE 0.85 uIU/mL (0.36-3.74); TOTAL PROTEIN, SERUM 7.5 g/dL (6.0-8.3)
[2021-01-17] MEDS: INSULIN R PO SS1 SQ SCH ×4 (06:09→20:48)
[2021-01-17 07:30] VITALS: BP 145/79
[2021-01-17 08:14] LABS: HEPATITIS Bs ANTIGEN SCREEN P Negative (Negative)
[2021-01-17] MEDS: METOPROLOL TARTRATE 25 MG TAB PO SCH ×2 (10:23→20:42)
[2021-01-17] MEDS: ASPIRIN 81MG TAB.CHEW PO SCH (10:23)
[2021-01-17] MEDS: CLOPIDOGREL BISULFATE 75 MG TAB PO SCH (10:24)
[2021-01-17] MEDS: LOSARTAN 50 MG TABLET PO SCH (10:24)
[2021-01-17 11:00] VITALS: BP 156/75
[2021-01-17 15:30] VITALS: BP 130/62
[2021-01-17 19:40] VITALS: BP 137/70
[2021-01-17] MEDS: ATORVASTATIN CALCIUM 40 MG TABLET PO SCH (20:42)
[2021-01-17] MEDS ORDERED: EPOETIN ALFA-EPBX (ESRD) 10,000 UNIT/ML VIAL SQ NR (21:00)
[2021-01-17 23:43] VITALS: BP 140/67
[2021-01-18 04:06] VITALS: BP 142/74
[2021-01-18] MEDS: INSULIN R PO SS1 SQ SCH ×4 (06:09→21:56)
[2021-01-18 08:00] VITALS: BP 152/87
[2021-01-18 11:53] VITALS: BP 160/69
[2021-01-18] MEDS: ASPIRIN 81MG TAB.CHEW PO SCH (14:45)
[2021-01-18] MEDS: LOSARTAN 50 MG TABLET PO SCH (14:45)
[2021-01-18] MEDS: CLOPIDOGREL BISULFATE 75 MG TAB PO SCH (14:45)
[2021-01-18] MEDS: METOPROLOL TARTRATE 25 MG TAB PO SCH ×2 (14:46→21:50)
[2021-01-18 16:00] VITALS: BP 155/95
[2021-01-18 19:20] VITALS: BP 148/71
[2021-01-18] MEDS: ATORVASTATIN CALCIUM 40 MG TABLET PO SCH (21:50)
[2021-01-18] MEDS ORDERED: HYDR-3420 PO (23:03)
[2021-01-18] MEDS ORDERED: METO25TA6 PO (23:03)
[2021-01-18] MEDS ORDERED: INSU3INS5 SQ (23:03)
[2021-01-18] MEDS ORDERED: TRAZ-185 PO (23:03)
[2021-01-18] MEDS ORDERED: PRAV20TA4 PO (23:03)
[2021-01-18] MEDS ORDERED: MIDO5TAB4 PO (23:08)
[2021-01-18 23:52] VITALS: BP 155/85
[2021-01-19 03:31] VITALS: BP 159/73
[2021-01-19] MEDS: INSULIN R PO SS1 SQ SCH ×2 (06:50→12:11)
[2021-01-19 08:16] VITALS: BP 155/38
[2021-01-19] MEDS: SEVELAMER HCL 800 MG TABLET PO SCH ×2 (08:48→12:10)
[2021-01-19] MEDS ORDERED: LACTULOSE 20 GM/30 ML UDCUP PO SCH (09:00)
[2021-01-19] MEDS ORDERED: METOPROLOL TARTRATE 25 MG TAB PO SCH (09:00)
[2021-01-19] MEDS ORDERED: MIDODRINE HCL 5 MG TABLET PO SCH (09:00)
[2021-01-19] MEDS ORDERED: BRIMONIDINE TARTRATE 0.2% 5 ML BOTTLE OP SCH (09:00)
[2021-01-19] MEDS ORDERED: INSULIN HUMULIN 70/30 100 UNIT/ML 3ML SQ SCH (09:00)
[2021-01-19] MEDS ORDERED: PANTOPRAZOLE SODIUM 40 MG TABLET.DR PO SCH (09:00)
[2021-01-19] MEDS ORDERED: HYDRALAZINE HCL 10 MG TABLET PO SCH (09:00)
[2021-01-19] MEDS ORDERED: ASPIRIN 81 MG EC TAB PO SCH (09:00)
[2021-01-19] MEDS: ASPIRIN 81MG TAB.CHEW PO SCH (10:21)
[2021-01-19] MEDS: METOPROLOL TARTRATE 25 MG TAB PO SCH (10:21)
[2021-01-19] MEDS: LOSARTAN 50 MG TABLET PO SCH (10:22)
[2021-01-19] MEDS: CLOPIDOGREL BISULFATE 75 MG TAB PO SCH (10:23)
[2021-01-19 12:05] VITALS: BP 126/65
[2021-01-19] MEDS ORDERED: LATANOPROST 2.5 ML DROPS OP SCH (21:00)
[2021-01-19] MEDS ORDERED: TIMOLOL MALEATE 0.5% 5 ML BOTTLE OS SCH (21:00)
[2021-01-19] MEDS ORDERED: TRAZODONE HCL 50 MG TAB PO SCH (21:00)
[2021-01-19] MEDS ORDERED: OLOPATADINE HCL 0.1% 5ML DROPS OP SCH (21:00)
== END 2021-01-19 15:00 | disposition home or self-care (01) | DRG 313 ==
LOC: EDH 16:15 → OBSVTOIN 16:16 → EDHIP 16:16 → 3CH 01-16 01:15
PROVIDERS: ADMIT Internal Medicine; ATTEND Internal Medicine
PROC: 5A1D70Z Performance of Urinary Filtration, Intermittent, Less than 6 Hours Per Day (ICD-10-PCS; principal; 2021-01-16)
PROC: 5A1D70Z Performance of Urinary Filtration, Intermittent, Less than 6 Hours Per Day (ICD-10-PCS; 2021-01-18)
DX: R07.9 Chest pain, unspecified (principal); N18.6 End stage renal disease; I50.42 Chronic combined systolic (congestive) and diastolic (congestive) heart failure; I13.2 Hypertensive heart and chronic kidney disease with heart failure and with stage 5 chronic kidney disease, or end stage renal disease; E11.22 Type 2 diabetes mellitus with diabetic chronic kidney disease; D63.8 Anemia in other chronic diseases classified elsewhere; E11.51 Type 2 diabetes mellitus with diabetic peripheral angiopathy without gangrene; E78.5 Hyperlipidemia, unspecified; I25.10 Atherosclerotic heart disease of native coronary artery without angina pectoris; I25.5 Ischemic cardiomyopathy; Z86.16 Personal history of COVID-19; E78.00 Pure hypercholesterolemia, unspecified; Z87.01 Personal history of pneumonia (recurrent); Z99.2 Dependence on renal dialysis; I25.2 Old myocardial infarction; Z91.19 Patient's noncompliance with other medical treatment and regimen; Z89.511 Acquired absence of right leg below knee; Z89.512 Acquired absence of left leg below knee; Z89.611 Acquired absence of right leg above knee; Z89.612 Acquired absence of left leg above knee
CPT/HCPCS: 36415; 71045; 78452; 80053; 82550; 82948; 83735; 83874; 84100; 84443; 84484; 85025; 85027; 85610; 85730; 86704; 86706; 87340; 87520; 90935; 93005; 93017; 93306; 93356; 96374; A9500; G0378; J1815; J2785

== ENCOUNTER 2021-02-22 13:34 | Observation (INO) | payer BC, OTHER ==
[~2021-02-22] VITALS: Ht 152.4 cm; Wt 84.4 kg
[~2021-02-22 13:34] MED LIST changes: +HYDR-3420 PO; +METO25TA6 PO; +PRAV20TA4 PO; +TRAZ-185 PO
[2021-02-22] MEDS ORDERED: ASPIRIN 325 MG TABLET ONE (13:56)
[2021-02-22 15:10] LABS: BASOPHILS % (AUTO) 0.9 % (0.0-5.0); EOSINOPHILS % (AUTO) 3.1 % (0.0-8.0); HEMATOCRIT 31.6 % (36-48); LYMPHOCYTES % (AUTO) 14.2 % (21.0-51.0); MEAN CORPUSCULAR HEMOGLOBIN 28.8 pg (27.0-33.0); MEAN CORPUSCULAR HGB CONC 31.6 g/dL (32.0-36.0); MEAN CORPUSCULAR VOLUME 91.1 fL (79-99); MONOCYTES % (AUTO) 7.5 % (3.0-13.0); NEUTROPHILS % (AUTO) 73.7 % (40.0-77.0); PLATELET COUNT (AUTO) 344 K/uL (130-400); RED BLOOD CELL COUNT(AUTO) 3.47 MIL/uL (4.00-5.50); WHITE BLOOD COUNT (AUTO) 11.5 K/uL (4.8-10.8)
[2021-02-22 15:27] LABS: ALBUMIN 3.6 g/dL (3.5-5.0); BILIRUBIN,TOTAL 0.4 mg/dL (0.2-1.0); CREATININE 7.4 mg/dL (0.5-1.5); TOTAL PROTEIN, SERUM 7.8 g/dL (6.0-8.3)
[2021-02-22 15:31] LABS: INR 1.02 (0.85-1.15); PROTHROMBIN TIME 11.1 SEC (9.6-11.6)
[2021-02-22 15:32] LABS: PARTIAL THROMBOPLASTIN TIME 29.3 SEC (26.3-35.5)
[2021-02-22 15:44] LABS: POTASSIUM 6.4 mmol/L (3.5-5.1)
[2021-02-22] MEDS ORDERED: SODIUM POLYSTYRENE SULFONATE 15 GM/60 ML ML ONE ×3 (18:35→22:06)
[2021-02-22 21:44] LABS: CREATININE 7.9 mg/dL (0.5-1.5)
[2021-02-23 04:44] VITALS: BP 179/44
[2021-02-23 08:00] VITALS: BP 165/55
[2021-02-23] MEDS ORDERED: ACETAMINOPHEN 325 MG TAB PO PRN (11:30)
[2021-02-23 12:00] VITALS: BP 168/44
[2021-02-23] MEDS ORDERED: CALCIUM GLUCONATE 1 GM/10 ML VIAL IV SCH (13:30)
[2021-02-23 13:43] LABS: HEMATOCRIT 30.1 % (36-48); MEAN CORPUSCULAR HEMOGLOBIN 28.6 pg (27.0-33.0); MEAN CORPUSCULAR HGB CONC 31.9 g/dL (32.0-36.0); MEAN CORPUSCULAR VOLUME 89.6 fL (79-99); PLATELET COUNT (AUTO) 348 K/uL (130-400); RED BLOOD CELL COUNT(AUTO) 3.36 MIL/uL (4.00-5.50); RED CELL DISTRIBUTION WIDTH 16.1 % (11.0-15.5); WHITE BLOOD COUNT (AUTO) 11.7 K/uL (4.8-10.8)
[2021-02-23] MEDS ORDERED: CALCIUM GLUCONATE 1 GM in SODIUM CHLORIDE 0.9% 50 ML IV SCH (14:00)
[2021-02-23 14:06] LABS: CREATININE 9.1 mg/dL (0.5-1.5); POTASSIUM 6.1 mmol/L (3.5-5.1)
[2021-02-23 14:59] LABS: BAND NEUTROPHILS % (MANUAL) 9 % (0-2); EOSINOPHILS % (MANUAL) 6 % (1-6); LYMPHOCYTES % (MANUAL) 7 % (22-44); MONOCYTES % (MANUAL) 2 % (2-9); REACTIVE LYMPHOCYTES 1 % (0-0); SEGMENTED NEUTROPHILS % 75 % (40-70)
[2021-02-23 15:07] LABS: MAN.DIFF COMMENT-IMPRESSION MANUAL DIFFERENTIAL
[2021-02-23 16:00] VITALS: BP 152/61
[2021-02-23 19:56] VITALS: BP 146/47
[2021-02-23 23:47] VITALS: BP 165/46
[2021-02-24 04:24] VITALS: BP 187/51
[2021-02-24 05:28] LABS: BASOPHILS % (AUTO) 0.8 % (0.0-5.0); EOSINOPHILS % (AUTO) 7.1 % (0.0-8.0); LYMPHOCYTES % (AUTO) 23.4 % (21.0-51.0); MEAN CORPUSCULAR HEMOGLOBIN 28.5 pg (27.0-33.0); MEAN CORPUSCULAR HGB CONC 31.6 g/dL (32.0-36.0); MEAN CORPUSCULAR VOLUME 90.1 fL (79-99); MONOCYTES % (AUTO) 10.4 % (3.0-13.0); NEUTROPHILS % (AUTO) 57.8 % (40.0-77.0); NUCLEATED RED BLOOD CELLS 0.3 % (0.0-0.19); PLATELET COUNT (AUTO) 377 K/uL (130-400); RED BLOOD CELL COUNT(AUTO) 3.55 MIL/uL (4.00-5.50); RED CELL DISTRIBUTION WIDTH 15.9 % (11.0-15.5); WHITE BLOOD COUNT (AUTO) 6.7 K/uL (4.8-10.8)
[2021-02-24 05:57] LABS: ALBUMIN 3.1 g/dL (3.5-5.0); BILIRUBIN,TOTAL 0.4 mg/dL (0.2-1.0); CREATININE 6.6 mg/dL (0.5-1.5); PHOSPHORUS 6.7 mg/dL (2.5-4.9); POTASSIUM 3.4 mmol/L (3.5-5.1); TOTAL PROTEIN, SERUM 7.3 g/dL (6.0-8.3)
[2021-02-24 07:30] VITALS: BP 143/39
[2021-02-24] MEDS ORDERED: Vitamin B Complex/Vit C/Folic Acid PO SCH (09:00)
[2021-02-24 11:00] VITALS: BP 160/47
[2021-02-24] MEDS ORDERED: MIDODRINE HCL 5 MG TABLET PO SCH (14:00)
[2021-02-24] MEDS ORDERED: SEVELAMER HCL 800 MG TABLET PO SCH (14:00)
[2021-02-24 16:00] VITALS: BP 136/45
[2021-02-24] MEDS ORDERED: INSULIN HUMULIN R 100 UNIT/ML 3ML SQ SCH (17:00)
[2021-02-24] MEDS ORDERED: METOPROLOL TARTRATE 25 MG TAB PO SCH (21:00)
[2021-02-24] MEDS ORDERED: OLOPATADINE HCL 0.1% 5ML DROPS OP SCH (21:00)
[2021-02-24] MEDS ORDERED: LACTULOSE 20 GM/30 ML UDCUP PO SCH (21:00)
[2021-02-24] MEDS ORDERED: ATORVASTATIN CALCIUM 10 MG TABLET PO SCH (21:00)
[2021-02-24] MEDS ORDERED: TRAZODONE HCL 50 MG TAB PO SCH (21:00)
[2021-02-24] MEDS ORDERED: HYDRALAZINE HCL 10 MG TABLET PO SCH (21:00)
[2021-02-24] MEDS ORDERED: TIMOLOL MALEATE 0.5% 5 ML BOTTLE OS SCH (21:00)
[2021-02-25 06:11] LABS: HEPATITIS A ANTIBODY IGM Negative (Negative); HEPATITIS B CORE IGM Negative (Negative); HEPATITIS Bs ANTIGEN SCREEN P Negative (Negative)
[2021-02-25] MEDS ORDERED: BRIMONIDINE TARTRATE 0.2% 5 ML BOTTLE OP SCH (09:00)
[2021-02-25] MEDS ORDERED: ASPIRIN 81 MG EC TAB PO SCH (09:00)
[2021-02-25] MEDS ORDERED: LATANOPROST 2.5 ML DROPS OP SCH (09:00)
[2021-02-25] MEDS ORDERED: PANTOPRAZOLE SODIUM 40 MG TABLET.DR PO SCH (09:00)
== END 2021-02-24 16:50 | disposition home or self-care (01) ==
LOC: EDH 13:34 → EDHIP 17:55 → 4AH 02-23 00:49
PROVIDERS: ADMIT Internal Medicine; ATTEND Internal Medicine
DX: E87.5 Hyperkalemia (principal); E11.22 Type 2 diabetes mellitus with diabetic chronic kidney disease; I12.0 Hypertensive chronic kidney disease with stage 5 chronic kidney disease or end stage renal disease; N18.6 End stage renal disease; D63.8 Anemia in other chronic diseases classified elsewhere; R11.2 Nausea with vomiting, unspecified; I25.10 Atherosclerotic heart disease of native coronary artery without angina pectoris; E78.5 Hyperlipidemia, unspecified; E87.70 Fluid overload, unspecified; E11.51 Type 2 diabetes mellitus with diabetic peripheral angiopathy without gangrene; E66.9 Obesity, unspecified; D72.829 Elevated white blood cell count, unspecified; E78.00 Pure hypercholesterolemia, unspecified; Z99.2 Dependence on renal dialysis; Z86.16 Personal history of COVID-19; Z87.891 Personal history of nicotine dependence; Z87.01 Personal history of pneumonia (recurrent); Z89.611 Acquired absence of right leg above knee; Z89.512 Acquired absence of left leg below knee; Z89.612 Acquired absence of left leg above knee; Z79.899 Other long term (current) drug therapy; Z68.36 Body mass index [BMI] 36.0-36.9, adult
CPT/HCPCS: 36415 ×3; 71045; 80048; 80053 ×2; 80074; 82550; 82948 ×7; 84100; 84132; 84484; 85025 ×3; 85610; 85730; 93005; 93925; 96365; 96372; 99285; G0378 ×44; J0610 ×2; J1815; 90935

== ENCOUNTER 2021-07-18 19:12 | Inpatient (IN) | payer BC ==
[~2021-07-18] VITALS: Ht 154.9 cm; Wt 78.9 kg
[~2021-07-18 19:12] MED LIST changes: +CACL 1GM SYG IVP ONE; +EPINEPHRINE 1MG SYG 10ML IVP ONE; +SODIUM BICARB 8.4% 50ML SYRINGE IVP ONE
[2021-07-18 21:20] VITALS: BP 104/32
[2021-07-18] MEDS ORDERED: HYDROCODONE/ACETAMINOPHEN 10/325 MG TAB ONE (21:27)
[2021-07-18] MEDS ORDERED: HYDROCODONE/ACETAMINOPHEN 10/325 MG TAB PO SCH (21:30)
[2021-07-18 22:06] VITALS: BP 107/67
[2021-07-18] MEDS ORDERED: ONDANSETRON 4MG INJ IVP ONE (23:00)
[2021-07-18] MEDS ORDERED: MORPHINE 4 MG SYG IV ONE (23:00)
[2021-07-18 23:30] LABS: BASOPHILS % (AUTO) 0.5 % (0.0-5.0); EOSINOPHILS % (AUTO) 2.1 % (0.0-8.0); HEMATOCRIT 34.6 % (36-48); LYMPHOCYTES % (AUTO) 8.3 % (21.0-51.0); MEAN CORPUSCULAR HEMOGLOBIN 29.8 pg (27.0-33.0); MEAN CORPUSCULAR HGB CONC 33.5 g/dL (32.0-36.0); MEAN CORPUSCULAR VOLUME 88.9 fL (79-99); MONOCYTES % (AUTO) 5.1 % (3.0-13.0); NEUTROPHILS % (AUTO) 83.6 % (40.0-77.0); PLATELET COUNT (AUTO) 225 K/uL (130-400); RED BLOOD CELL COUNT(AUTO) 3.89 MIL/uL (4.00-5.50); RED CELL DISTRIBUTION WIDTH 14.7 % (11.0-15.5); WHITE BLOOD COUNT (AUTO) 13.6 K/uL (4.8-10.8)
[2021-07-18 23:51] LABS: CREATININE 7.5 mg/dL (0.5-1.5); POTASSIUM 4.8 mmol/L (3.5-5.1)
[2021-07-18 23:55] LABS: ALBUMIN 3.4 g/dL (3.5-5.0); BILIRUBIN,TOTAL 0.4 mg/dL (0.2-1.0); TOTAL PROTEIN, SERUM 6.9 g/dL (6.0-8.3)
[2021-07-19] VITALS (21 sets, daily range): BP systolic 73–140; BP diastolic 36–107
[2021-07-19] MEDS ORDERED: ACETAMINOPHEN 325 MG TAB PO PRN ×2 (00:30)
[2021-07-19] MEDS: MORPHINE 2 MG SYG IVP PRN ×2 (06:56→15:51)
[2021-07-19 07:38] LABS: BASOPHILS % (AUTO) 0.4 % (0.0-5.0); EOSINOPHILS % (AUTO) 0.3 % (0.0-8.0); HEMATOCRIT 36.6 % (36-48); MEAN CORPUSCULAR HEMOGLOBIN 28.8 pg (27.0-33.0); MEAN CORPUSCULAR HGB CONC 31.1 g/dL (32.0-36.0); MEAN CORPUSCULAR VOLUME 92.4 fL (79-99); MONOCYTES % (AUTO) 4.4 % (3.0-13.0); NEUTROPHILS % (AUTO) 87.2 % (40.0-77.0); PLATELET COUNT (AUTO) 240 K/uL (130-400); RED BLOOD CELL COUNT(AUTO) 3.96 MIL/uL (4.00-5.50); RED CELL DISTRIBUTION WIDTH 14.6 % (11.0-15.5); WHITE BLOOD COUNT (AUTO) 10.1 K/uL (4.8-10.8)
[2021-07-19] MEDS ORDERED: DiphenhydrAMINE HCL 50 MG/ML VIAL ONE (07:39)
[2021-07-19 07:49] LABS: ALBUMIN 3.2 g/dL (3.5-5.0); BILIRUBIN,TOTAL 0.3 mg/dL (0.2-1.0); TOTAL PROTEIN, SERUM 7.5 g/dL (6.0-8.3)
[2021-07-19] MEDS ORDERED: DiphenhydrAMINE HCL 50 MG/ML VIAL IV SCH (07:50)
[2021-07-19 08:21] LABS: POTASSIUM 6.1 mmol/L (3.5-5.1)
[2021-07-19 08:22] LABS: CREATININE 8.1 mg/dL (0.5-1.5)
[2021-07-19] MEDS ORDERED: INSULIN HUMULIN R 100 UNIT/ML 3ML SQ SCH (09:32)
[2021-07-19] MEDS ORDERED: INSULIN HUMULIN R 100 UNIT/ML 3ML ONE ×2 (09:44)
[2021-07-19] MEDS ORDERED: GLUCAGON 1MG KIT 1 MG ML IM PRN (10:00)
[2021-07-19] MEDS ORDERED: DEXTROSE 50%-WATER 50 ML DISP.SYRIN IV PRN (10:00)
[2021-07-19] MEDS: INSULIN HUMULIN R 100 UNIT/ML 3ML SQ SCH ×3 (12:15→19:43)
[2021-07-19] MEDS ORDERED: ONDANSETRON 4MG INJ IVP PRN (14:00)
[2021-07-19] MEDS ORDERED: LACTULOSE 20 GM/30 ML UDCUP PO PRN (14:00)
[2021-07-19] MEDS: Vitamin B Complex/Vit C/Folic Acid PO SCH (14:26)
[2021-07-20] VITALS (108 sets, daily range): BP systolic 80–187; BP diastolic 31–115
[2021-07-20] MEDS ORDERED: DEXTROSE 10%-WATER 1,000 ML IV ONE
[2021-07-20 00:23] LABS: BASOPHILS % (AUTO) 0.2 % (0.0-5.0); EOSINOPHILS % (AUTO) 0.2 % (0.0-8.0); HEMATOCRIT 28.3 % (36-48); MEAN CORPUSCULAR HEMOGLOBIN 29.4 pg (27.0-33.0); MEAN CORPUSCULAR HGB CONC 32.2 g/dL (32.0-36.0); MEAN CORPUSCULAR VOLUME 91.6 fL (79-99); MONOCYTES % (AUTO) 3.6 % (3.0-13.0); NEUTROPHILS % (AUTO) 76.7 % (40.0-77.0); PLATELET COUNT (AUTO) 154 K/uL (130-400); RED BLOOD CELL COUNT(AUTO) 3.09 MIL/uL (4.00-5.50); RED CELL DISTRIBUTION WIDTH 14.9 % (11.0-15.5); WHITE BLOOD COUNT (AUTO) 17.2 K/uL (4.8-10.8)
[2021-07-20] MEDS ORDERED: PROPOFOL 1000 MG/100 ML 100 ML IV ONE (00:24)
[2021-07-20] MEDS ORDERED: FENTANYL CITRATE PF 0.05 MG/ML 1,000 MCG in 0.9%NACL 100ML 100 ML IVPB STA (00:36)
[2021-07-20 00:48] LABS: B-TYPE NATRIURETIC PEPTIDE 1500 pg/mL (0-100)
[2021-07-20 00:58] LABS: ALBUMIN 2.4 g/dL (3.5-5.0); BILIRUBIN,TOTAL 0.2 mg/dL (0.2-1.0); CREATININE 5.1 mg/dL (0.5-1.5); MAGNESIUM 2.2 mg/dL (1.80-2.40); PHOSPHORUS 8.2 mg/dL (2.5-4.9); POTASSIUM 3.4 mmol/L (3.5-5.1); TOTAL PROTEIN, SERUM 5.8 g/dL (6.0-8.3)
[2021-07-20] MEDS ORDERED: MIDAZOLAM 100MG-0.9% NS 100ML 100ML BAG IV ONE (01:00)
[2021-07-20 01:06] LABS: TROPONIN I 3.98 ng/mL (0.00-0.06)
[2021-07-20] MEDS ORDERED: FENTANYL 2500MCG+NS 250ML 250 ML IV ONE (01:11)
[2021-07-20] MEDS ORDERED: IBUP-2784 PO (01:12)
[2021-07-20] MEDS ORDERED: FLUT16H NASAL (01:12)
[2021-07-20] MEDS ORDERED: DOXY-336 PO (01:12)
[2021-07-20] MEDS ORDERED: DEXT1DRO OU (01:12)
[2021-07-20] MEDS ORDERED: ATOR40TA69 PO (01:12)
[2021-07-20] MEDS ORDERED: CLOP75TA14 PO (01:12)
[2021-07-20] MEDS ORDERED: GABA-529 PO (01:12)
[2021-07-20] MEDS ORDERED: HYDR25SU11 RC (01:12)
[2021-07-20] MEDS ORDERED: PREDAOS OU (01:12)
[2021-07-20] MEDS ORDERED: HYDR-4154 PO (01:12)
[2021-07-20] MEDS ORDERED: CEPH500C2 PO (01:12)
[2021-07-20] MEDS ORDERED: AMLO-257 PO (01:12)
[2021-07-20] MEDS ORDERED: MELO-108 PO (01:12)
[2021-07-20 01:22] LABS: ABG BASE EXCESS 0.6 mmol/L (-2.0-3.0); ABG HCO3 23.5 mmol/L (21.0-28.0); ABG OXYGEN SATURATION 99.3 % (95.0-99.0); ABG PCO2 32 mmHg (32-45)
[2021-07-20] MEDS ORDERED: HEPARIN 25,000 UNITS/250ML D5W 250 ML IV ONE (02:12)
[2021-07-20] MEDS ORDERED: NITROGLYCERIN 1GM OINT 1 INCH/1GM TD ONE (02:35)
[2021-07-20] MEDS ORDERED: ASPIRIN 325MG TAB ONE (02:35)
[2021-07-20 02:52] LABS: INR 1.07 (0.85-1.15); PROTHROMBIN TIME 11.6 SEC (9.6-11.6)
[2021-07-20 02:56] LABS: PARTIAL THROMBOPLASTIN TIME 19.4 SEC (26.3-35.5)
[2021-07-20] MEDS ORDERED: MIDAZOLAM 100MG-0.9% NS 100ML 100ML BAG IV STA (03:12)
[2021-07-20 03:29] LABS: BASOPHILS % (AUTO) 0.1 % (0.0-5.0); EOSINOPHILS % (AUTO) 0.1 % (0.0-8.0); LYMPHOCYTES % (AUTO) 8.9 % (21.0-51.0); MEAN CORPUSCULAR HEMOGLOBIN 29.9 pg (27.0-33.0); MEAN CORPUSCULAR HGB CONC 33.8 g/dL (32.0-36.0); MEAN CORPUSCULAR VOLUME 88.4 fL (79-99); MONOCYTES % (AUTO) 3.7 % (3.0-13.0); NEUTROPHILS % (AUTO) 86.6 % (40.0-77.0); PLATELET COUNT (AUTO) 183 K/uL (130-400); RED BLOOD CELL COUNT(AUTO) 3.28 MIL/uL (4.00-5.50); RED CELL DISTRIBUTION WIDTH 14.8 % (11.0-15.5); WHITE BLOOD COUNT (AUTO) 12.6 K/uL (4.8-10.8)
[2021-07-20 04:16] LABS: CREATININE 5.4 mg/dL (0.5-1.5); MAGNESIUM 2.1 mg/dL (1.80-2.40); PHOSPHORUS 7.4 mg/dL (2.5-4.9); POTASSIUM 4.2 mmol/L (3.5-5.1)
[2021-07-20] MEDS ORDERED: NITROGLYCERIN 50MG/D5W 250ML 250 BOT IV SCH (05:30)
[2021-07-20 05:41] LABS: ABG BASE EXCESS 4.8 mmol/L (-2.0-3.0); ABG HCO3 28.1 mmol/L (21.0-28.0); ABG OXYGEN SATURATION 97.4 % (95.0-99.0); ABG PCO2 37 mmHg (32-45)
[2021-07-20] MEDS ORDERED: NITROGLYCERIN 50MG/D5W 250ML 1 BOT ONE (05:54)
[2021-07-20 06:36] LABS: INR 1.04 (0.85-1.15); PROTHROMBIN TIME 11.3 SEC (9.6-11.6)
[2021-07-20 06:37] LABS: PARTIAL THROMBOPLASTIN TIME 28.8 SEC (26.3-35.5)
[2021-07-20] MEDS ORDERED: ASPIRIN 325MG TAB PO SCH (07:06)
[2021-07-20] MEDS: NITROGLYCERIN 1GM OINT 1 INCH/1GM TD SCH ×2 (07:07→15:33)
[2021-07-20] MEDS: MIDAZOLAM 100MG-0.9% NS 100ML 100 ML IV SCH (07:09)
[2021-07-20] MEDS: INSULIN HUMULIN R 100 UNIT/ML 3ML SQ SCH ×4 (07:30→21:00)
[2021-07-20] MEDS ORDERED: HEPARIN 5,000 UNIT VIAL IV SCH (08:00)
[2021-07-20] MEDS: Vitamin B Complex/Vit C/Folic Acid PO SCH (08:09)
[2021-07-20] MEDS ORDERED: VANCOMYCIN PROTOCOL PER PHARMACY IV SCH (09:00)
[2021-07-20] MEDS ORDERED: ZOSYN 3.375GM+NS 50ML 3.38 GM in 0.9%NACL 50ML 50 ML IV SCH (09:00)
[2021-07-20] MEDS ORDERED: VANCOMYCIN 1G VIAL IVPB SCH (09:00)
[2021-07-20] MEDS ORDERED: 0.9% NACL 250ML IVPB SCH (09:00)
[2021-07-20] MEDS ORDERED: 0.9%NACL 1000ML 1,000 ML IV SCH (09:00)
[2021-07-20] MEDS ORDERED: 0.9%NACL 50ML 50 ML IV ONE (09:45)
[2021-07-20] MEDS: ZOSYN 3.375GM+NS 50ML 50 ML IV SCH ×2 (09:46→21:44)
[2021-07-20] MEDS ORDERED: CLOPIDOGREL 300MG TAB NG SCH (12:11)
[2021-07-20] MEDS ORDERED: VANCOMYCIN 750MG VIAL IVPB SCH (12:19)
[2021-07-20] MEDS ORDERED: 0.9% NACL 250ML 250 ML IV SCH (12:30)
[2021-07-20 15:00] LABS: INR 1.19 (0.85-1.15); PROTHROMBIN TIME 12.8 SEC (9.6-11.6)
[2021-07-20 15:16] LABS: PARTIAL THROMBOPLASTIN TIME > 139.0 SEC (26.3-35.5)
[2021-07-20] MEDS: FENTANYL 2500MCG+NS 250ML 250 ML IV SCH (17:08)
[2021-07-20] MEDS: HEPARIN 25,000 UNITS/250ML D5W 250 ML IV SCH (18:19)
[2021-07-20] MEDS: METOPROLOL TARTRATE 25 MG TAB NG SCH (21:00)
[2021-07-20 21:17] LABS: INR 1.13 (0.85-1.15); PROTHROMBIN TIME 12.2 SEC (9.6-11.6)
[2021-07-20 21:34] LABS: PARTIAL THROMBOPLASTIN TIME 65.6 SEC (26.3-35.5)
[2021-07-21] VITALS (49 sets, daily range): BP systolic 70–133; BP diastolic 19–79
[2021-07-21] MEDS: NITROGLYCERIN 1GM OINT 1 INCH/1GM TD SCH ×4 (00:38→23:00)
[2021-07-21 03:41] LABS: HEMATOCRIT 24.8 % (36-48); MEAN CORPUSCULAR HEMOGLOBIN 30.4 pg (27.0-33.0); MEAN CORPUSCULAR HGB CONC 33.9 g/dL (32.0-36.0); MEAN CORPUSCULAR VOLUME 89.9 fL (79-99); RED BLOOD CELL COUNT(AUTO) 2.76 MIL/uL (4.00-5.50); RED CELL DISTRIBUTION WIDTH 15.2 % (11.0-15.5); WHITE BLOOD COUNT (AUTO) 12.7 K/uL (4.8-10.8)
[2021-07-21 03:51] LABS: INR 1.18 (0.85-1.15); PROTHROMBIN TIME 12.7 SEC (9.6-11.6)
[2021-07-21 03:55] LABS: ALBUMIN 2.5 g/dL (3.5-5.0); BILIRUBIN,TOTAL 0.5 mg/dL (0.2-1.0); CREATININE 6.3 mg/dL (0.5-1.5); MAGNESIUM 1.9 mg/dL (1.80-2.40); PHOSPHORUS 6.7 mg/dL (2.5-4.9); POTASSIUM 4.4 mmol/L (3.5-5.1); TOTAL PROTEIN, SERUM 5.9 g/dL (6.0-8.3)
[2021-07-21 04:08] LABS: PARTIAL THROMBOPLASTIN TIME 51.6 SEC (26.3-35.5)
[2021-07-21] MEDS: MIDAZOLAM 100MG-0.9% NS 100ML 100 ML IV SCH (07:04)
[2021-07-21] MEDS: INSULIN HUMULIN R 100 UNIT/ML 3ML SQ SCH ×4 (07:30→23:13)
[2021-07-21] MEDS: ZOSYN 3.375GM+NS 50ML 50 ML IV SCH ×2 (08:06→20:54)
[2021-07-21] MEDS: METOPROLOL TARTRATE 25 MG TAB NG SCH ×3 (08:07→20:54)
[2021-07-21] MEDS: Vitamin B Complex/Vit C/Folic Acid PO SCH (08:07)
[2021-07-21] MEDS: CLOPIDOGREL 75MG TAB PO SCH (08:07)
[2021-07-21] MEDS: HEPARIN 25,000 UNITS/250ML D5W 250 ML IV SCH (08:31)
[2021-07-21 08:57] LABS: ABG BASE EXCESS 0.2 mmol/L (-2.0-3.0); ABG OXYGEN SATURATION 89.5 % (95.0-99.0); ABG PCO2 33 mmHg (32-45)
[2021-07-21 09:19] LABS: ABG BASE EXCESS -0.1 mmol/L (-2.0-3.0); ABG HCO3 23.5 mmol/L (21.0-28.0); ABG OXYGEN SATURATION 87.6 % (95.0-99.0); ABG PCO2 34 mmHg (32-45)
[2021-07-21] MEDS ORDERED: MORPHINE 2 MG SYG IVP PRN (11:00)
[2021-07-21] MEDS ORDERED: PROPOFOL 1000 MG/100 ML IV PRN (11:30)
[2021-07-21] MEDS ORDERED: PROPOFOL 1000 MG/100 ML 100 ML IV PRN (12:00)
[2021-07-21] MEDS: PROPOFOL 1000 MG/100 ML 100 ML IV SCH (12:22)
[2021-07-21] MEDS: LORAZEPAM 2 MG/ML 1 ML VIAL IVP PRN (13:35)
[2021-07-21] MEDS: FENTANYL 2500MCG+NS 250ML 250 ML IV SCH (22:57)
[2021-07-22] VITALS (37 sets, daily range): BP systolic 95–169; BP diastolic 30–86
[2021-07-22] MEDS: HEPARIN 25,000 UNITS/250ML D5W 250 ML IV SCH ×2 (01:00→18:36)
[2021-07-22] MEDS: PROPOFOL 1000 MG/100 ML 100 ML IV SCH ×3 (04:36→21:18)
[2021-07-22 05:43] LABS: ALBUMIN 2.2 g/dL (3.5-5.0); BILIRUBIN,TOTAL 0.5 mg/dL (0.2-1.0); PHOSPHORUS 7.8 mg/dL (2.5-4.9); POTASSIUM 4.8 mmol/L (3.5-5.1); TOTAL PROTEIN, SERUM 5.9 g/dL (6.0-8.3)
[2021-07-22] MEDS: INSULIN HUMULIN R 100 UNIT/ML 3ML SQ SCH ×3 (06:00→18:00)
[2021-07-22] MEDS: NITROGLYCERIN 1GM OINT 1 INCH/1GM TD SCH ×3 (06:42→21:21)
[2021-07-22] MEDS: ZOSYN 3.375GM+NS 50ML 50 ML IV SCH ×2 (08:52→21:06)
[2021-07-22] MEDS: Vitamin B Complex/Vit C/Folic Acid PO SCH (08:55)
[2021-07-22] MEDS: CLOPIDOGREL 75MG TAB PO SCH (08:55)
[2021-07-22] MEDS: METOPROLOL TARTRATE 25 MG TAB NG SCH ×2 (09:00→21:00)
[2021-07-22] MEDS ORDERED: VANCOMYCIN KIT 1 GM/250 ML IV.KIT IV SCH (09:29)
[2021-07-22] MEDS ORDERED: NOREPINEPHRINE BITARTRATE 8 MG in 0.9% NACL 250ML 250 ML IV SCH (12:30)
[2021-07-22] MEDS ORDERED: ALBUMIN (HUMAN) 25% 100 ML IV PRN (12:30)
[2021-07-22] MEDS ORDERED: NOREPINEPHRINE 8MG/NS 250 ML 250 ML IV ONE (12:38)
[2021-07-22] MEDS ORDERED: NOREPINEPHRINE 8MG/NS 250 ML 250 ML IV SCH (13:00)
[2021-07-22] MEDS: 0.9% NACL 250ML 250 ML IV SCH (20:08)
[2021-07-23] VITALS (27 sets, daily range): BP systolic 118–182; BP diastolic 35–57
[2021-07-23] MEDS: INSULIN HUMULIN R 100 UNIT/ML 3ML SQ SCH ×4 (05:15→18:00)
[2021-07-23] MEDS: NITROGLYCERIN 1GM OINT 1 INCH/1GM TD SCH ×3 (05:16→23:07)
[2021-07-23 05:24] LABS: HEMATOCRIT 22.4 % (36-48); MEAN CORPUSCULAR HEMOGLOBIN 29.5 pg (27.0-33.0); MEAN CORPUSCULAR HGB CONC 32.1 g/dL (32.0-36.0); MEAN CORPUSCULAR VOLUME 91.8 fL (79-99); NUCLEATED RED BLOOD CELLS 0.3 % (0.0-0.19); RED BLOOD CELL COUNT(AUTO) 2.44 MIL/uL (4.00-5.50); RED CELL DISTRIBUTION WIDTH 15.3 % (11.0-15.5)
[2021-07-23 06:27] LABS: CREATININE 5.1 mg/dL (0.5-1.5); POTASSIUM 4.1 mmol/L (3.5-5.1)
[2021-07-23] MEDS: PROPOFOL 1000 MG/100 ML 100 ML IV SCH ×3 (06:32→18:50)
[2021-07-23] MEDS: METOPROLOL TARTRATE 25 MG TAB NG SCH ×2 (09:00→21:00)
[2021-07-23] MEDS: ZOSYN 3.375GM+NS 50ML 50 ML IV SCH ×2 (09:18→19:46)
[2021-07-23] MEDS: Vitamin B Complex/Vit C/Folic Acid PO SCH (09:22)
[2021-07-23] MEDS: CLOPIDOGREL 75MG TAB PO SCH (09:23)
[2021-07-23] MEDS ORDERED: EPOETIN ALFA-EPBX (ESRD) 10,000 UNIT/ML VIAL SQ SCH (12:00)
[2021-07-23] MEDS ORDERED: ASPIRIN 81MG CHEW TAB PO ONE (16:00)
[2021-07-23] MEDS: HEPARIN 25,000 UNITS/250ML D5W 250 ML IV SCH (18:51)
[2021-07-24] VITALS (73 sets, daily range): BP systolic 102–185; BP diastolic 30–78
[2021-07-24] MEDS: PROPOFOL 1000 MG/100 ML 100 ML IV SCH ×3 (03:37→18:20)
[2021-07-24 03:50] LABS: MEAN CORPUSCULAR HEMOGLOBIN 29.5 pg (27.0-33.0); MEAN CORPUSCULAR HGB CONC 31.9 g/dL (32.0-36.0); MEAN CORPUSCULAR VOLUME 92.5 fL (79-99); NUCLEATED RED BLOOD CELLS 0.4 % (0.0-0.19); PLATELET COUNT (AUTO) 214 K/uL (130-400); RED BLOOD CELL COUNT(AUTO) 2.27 MIL/uL (4.00-5.50); RED CELL DISTRIBUTION WIDTH 15.4 % (11.0-15.5); WHITE BLOOD COUNT (AUTO) 12.2 K/uL (4.8-10.8)
[2021-07-24 04:01] LABS: CREATININE 6.6 mg/dL (0.5-1.5)
[2021-07-24 04:13] LABS: BAND NEUTROPHILS % (MANUAL) 1 % (0-2); EOSINOPHILS % (MANUAL) 3 % (1-6); LYMPHOCYTES % (MANUAL) 21 % (22-44); MAN.DIFF COMMENT-IMPRESSION MANUAL DIFFERENTIAL; MONOCYTES % (MANUAL) 6 % (2-9); PLATELET MORPHOLOGY COMMENT ADEQUATE; SEGMENTED NEUTROPHILS % 69 % (40-70)
[2021-07-24] MEDS: INSULIN HUMULIN R 100 UNIT/ML 3ML SQ SCH ×4 (06:00→18:00)
[2021-07-24] MEDS: NITROGLYCERIN 1GM OINT 1 INCH/1GM TD SCH ×3 (06:09→19:30)
[2021-07-24] MEDS: EPOETIN ALFA-EPBX (ESRD) 10,000 UNIT/ML VIAL SQ SCH (09:35)
[2021-07-24] MEDS: METOPROLOL TARTRATE 25 MG TAB NG SCH ×2 (12:25→21:00)
[2021-07-24] MEDS: 0.9% NACL 250ML 250 ML IV SCH ×2 (12:37→12:41)
[2021-07-24] MEDS: CLOPIDOGREL 75MG TAB PO SCH (12:38)
[2021-07-24] MEDS: ASPIRIN 81MG CHEW TAB PO SCH (12:39)
[2021-07-24] MEDS: ZOSYN 3.375GM+NS 50ML 50 ML IV SCH (12:39)
[2021-07-24] MEDS: Vitamin B Complex/Vit C/Folic Acid PO SCH (12:39)
[2021-07-24] MEDS: VANCOMYCIN KIT 1 GM/250 ML IV.KIT IV SCH (12:41)
[2021-07-24] MEDS ORDERED: HYDROMORPHONE 0.5 MG SYG (0.5MG/0.5ML) IVP PRN (13:30)
[2021-07-24 13:58] LABS: HEMATOCRIT 33.4 % (36-48)
[2021-07-24 14:12] LABS: HEPATITIS Bs ANTIGEN SCREEN P Negative (Negative)
[2021-07-24] MEDS: FENTANYL 2500MCG+NS 250ML 250 ML IV SCH (18:20)
[2021-07-24] MEDS ORDERED: HEPARIN 25,000 UNITS/250ML D5W 250 ML IV SCH (18:30)
[2021-07-24 23:09] LABS: INR 1.01 (0.85-1.15)
[2021-07-25] VITALS (36 sets, daily range): BP systolic 117–169; BP diastolic 30–50
[2021-07-25] MEDS: ZOSYN 3.375GM+NS 50ML 50 ML IV SCH ×2 (00:48→13:37)
[2021-07-25] MEDS ORDERED: HEPARIN 5,000 UNIT VIAL ONE (00:57)
[2021-07-25] MEDS: NITROGLYCERIN 1GM OINT 1 INCH/1GM TD SCH ×3 (02:19→18:36)
[2021-07-25] MEDS: PROPOFOL 1000 MG/100 ML 100 ML IV SCH ×3 (03:25→22:44)
[2021-07-25 04:56] LABS: HEMATOCRIT 31.4 % (36-48); MEAN CORPUSCULAR HEMOGLOBIN 29.9 pg (27.0-33.0); MEAN CORPUSCULAR HGB CONC 32.5 g/dL (32.0-36.0); MEAN CORPUSCULAR VOLUME 92.1 fL (79-99); NUCLEATED RED BLOOD CELLS 0.8 % (0.0-0.19); RED BLOOD CELL COUNT(AUTO) 3.41 MIL/uL (4.00-5.50); RED CELL DISTRIBUTION WIDTH 15.8 % (11.0-15.5); WHITE BLOOD COUNT (AUTO) 14.4 K/uL (4.8-10.8)
[2021-07-25 05:03] LABS: CREATININE 4.7 mg/dL (0.5-1.5); POTASSIUM 3.6 mmol/L (3.5-5.1)
[2021-07-25 05:07] LABS: INR 1.05 (0.85-1.15); PROTHROMBIN TIME 11.4 SEC (9.6-11.6)
[2021-07-25 05:08] LABS: PARTIAL THROMBOPLASTIN TIME 74.3 SEC (26.3-35.5)
[2021-07-25] MEDS: INSULIN HUMULIN R 100 UNIT/ML 3ML SQ SCH ×4 (05:48→17:21)
[2021-07-25] MEDS: ASPIRIN 81MG CHEW TAB PO SCH (08:00)
[2021-07-25] MEDS: METOPROLOL TARTRATE 25 MG TAB NG SCH ×2 (08:00→20:49)
[2021-07-25] MEDS: CLOPIDOGREL 75MG TAB PO SCH (08:00)
[2021-07-25] MEDS ORDERED: IOHEXOL-350 50ML VIAL IV ONE (08:41)
[2021-07-25] MEDS ORDERED: LIDOCAINE HCL 400MG/20ML VIAL ONE (08:41)
[2021-07-25] MEDS ORDERED: BIVALIRUDIN 250 MG/VIAL IV ONE (08:41)
[2021-07-25] MEDS ORDERED: NITROGLYCERIN 2 MG VIAL IV ONE (08:41)
[2021-07-25] MEDS ORDERED: IOHEXOL 350 MG/ML 100ML INFUS..BTL IV ONE (08:41)
[2021-07-25] MEDS ORDERED: HEPARIN 10,000 UNIT/10ML (1,000 UNIT/ML) VIAL ONE (08:41)
[2021-07-25] MEDS ORDERED: LABETALOL 20MG SYG IV ONE ×2 (09:48→09:54)
[2021-07-25] MEDS: Vitamin B Complex/Vit C/Folic Acid PO SCH (11:36)
[2021-07-25] MEDS: VANCOMYCIN KIT 1 GM/250 ML IV.KIT IV SCH (13:29)
[2021-07-26] VITALS (42 sets, daily range): BP systolic 108–174; BP diastolic 33–61
[2021-07-26] MEDS: ZOSYN 3.375GM+NS 50ML 50 ML IV SCH ×2 (00:18→13:12)
[2021-07-26] MEDS: NITROGLYCERIN 1GM OINT 1 INCH/1GM TD SCH ×3 (03:39→19:59)
[2021-07-26 04:13] LABS: BASOPHILS % (AUTO) 0.5 % (0.0-5.0); EOSINOPHILS % (AUTO) 5.3 % (0.0-8.0); HEMATOCRIT 29.3 % (36-48); LYMPHOCYTES % (AUTO) 9.8 % (21.0-51.0); MEAN CORPUSCULAR HEMOGLOBIN 29.6 pg (27.0-33.0); MEAN CORPUSCULAR HGB CONC 32.4 g/dL (32.0-36.0); MEAN CORPUSCULAR VOLUME 91.3 fL (79-99); MONOCYTES % (AUTO) 6.9 % (3.0-13.0); NEUTROPHILS % (AUTO) 73.4 % (40.0-77.0); NUCLEATED RED BLOOD CELLS 0.4 % (0.0-0.19); PLATELET COUNT (AUTO) 247 K/uL (130-400); RED BLOOD CELL COUNT(AUTO) 3.21 MIL/uL (4.00-5.50); RED CELL DISTRIBUTION WIDTH 15.9 % (11.0-15.5)
[2021-07-26 04:27] LABS: BILIRUBIN,TOTAL 0.9 mg/dL (0.2-1.0); CREATININE 6.1 mg/dL (0.5-1.5); MAGNESIUM 2.2 mg/dL (1.80-2.40); PHOSPHORUS 7.1 mg/dL (2.5-4.9); POTASSIUM 4.3 mmol/L (3.5-5.1)
[2021-07-26] MEDS: INSULIN HUMULIN R 100 UNIT/ML 3ML SQ SCH ×4 (05:45→18:00)
[2021-07-26] MEDS: METOPROLOL TARTRATE 25 MG TAB NG SCH ×2 (09:00→20:00)
[2021-07-26] MEDS: Vitamin B Complex/Vit C/Folic Acid PO SCH (09:51)
[2021-07-26] MEDS: CLOPIDOGREL 75MG TAB PO SCH (09:52)
[2021-07-26] MEDS: ASPIRIN 81MG CHEW TAB PO SCH (09:52)
[2021-07-26] MEDS: PROPOFOL 1000 MG/100 ML 100 ML IV SCH ×2 (12:34→21:14)
[2021-07-26] MEDS: EPOETIN ALFA-EPBX (ESRD) 10,000 UNIT/ML VIAL SQ SCH (13:13)
[2021-07-26] MEDS: ENOXAPARIN SODIUM 30 MG/0.3 ML SQ SCH (13:14)
[2021-07-26] MEDS: 0.9% NACL 250ML 250 ML IV SCH (15:17)
[2021-07-26] MEDS: VANCOMYCIN KIT 1 GM/250 ML IV.KIT IV SCH (15:17)
[2021-07-26] MEDS ORDERED: FENTANYL 2500MCG+NS 250ML 250 ML IV SCH (15:30)
[2021-07-27] VITALS (22 sets, daily range): BP systolic 135–172; BP diastolic 38–59
[2021-07-27] MEDS: ZOSYN 3.375GM+NS 50ML 50 ML IV SCH ×2 (01:08→12:01)
[2021-07-27] MEDS: NITROGLYCERIN 1GM OINT 1 INCH/1GM TD SCH ×3 (03:35→18:39)
[2021-07-27] MEDS: PROPOFOL 1000 MG/100 ML 100 ML IV SCH (05:20)
[2021-07-27] MEDS: INSULIN HUMULIN R 100 UNIT/ML 3ML SQ SCH ×4 (05:29→17:54)
[2021-07-27] MEDS: CLOPIDOGREL 75MG TAB PO SCH (08:59)
[2021-07-27] MEDS: Vitamin B Complex/Vit C/Folic Acid PO SCH (08:59)
[2021-07-27] MEDS: ASPIRIN 81MG CHEW TAB PO SCH (08:59)
[2021-07-27] MEDS: METOPROLOL TARTRATE 25 MG TAB NG SCH ×2 (08:59→19:34)
[2021-07-27 09:02] LABS: BASOPHILS % (AUTO) 0.7 % (0.0-5.0); EOSINOPHILS % (AUTO) 5.7 % (0.0-8.0); HEMATOCRIT 29.9 % (36-48); LYMPHOCYTES % (AUTO) 10.5 % (21.0-51.0); MEAN CORPUSCULAR HGB CONC 31.1 g/dL (32.0-36.0); MEAN CORPUSCULAR VOLUME 96.5 fL (79-99); MONOCYTES % (AUTO) 6.8 % (3.0-13.0); NEUTROPHILS % (AUTO) 73.2 % (40.0-77.0); NUCLEATED RED BLOOD CELLS 0.4 % (0.0-0.19); PLATELET COUNT (AUTO) 262 K/uL (130-400); RED CELL DISTRIBUTION WIDTH 15.9 % (11.0-15.5); WHITE BLOOD COUNT (AUTO) 13.6 K/uL (4.8-10.8)
[2021-07-27 09:12] LABS: CREATININE 4.7 mg/dL (0.5-1.5); POTASSIUM 3.5 mmol/L (3.5-5.1)
[2021-07-27] MEDS: ENOXAPARIN SODIUM 30 MG/0.3 ML SQ SCH (09:18)
[2021-07-27] MEDS: LORAZEPAM 2 MG/ML 1 ML VIAL IVP PRN (10:14)
[2021-07-27] MEDS: VANCOMYCIN KIT 1 GM/250 ML IV.KIT IV SCH (15:36)
[2021-07-28] VITALS (39 sets, daily range): BP systolic 120–183; BP diastolic 34–109
[2021-07-28] MEDS ORDERED: 0.9%NACL 50ML 50 ML IV ONE (00:44)
[2021-07-28] MEDS: ZOSYN 3.375GM+NS 50ML 50 ML IV SCH ×2 (00:51→13:28)
[2021-07-28] MEDS: NITROGLYCERIN 1GM OINT 1 INCH/1GM TD SCH ×3 (03:29→20:11)
[2021-07-28 04:08] LABS: HEMATOCRIT 30.8 % (36-48); MEAN CORPUSCULAR HGB CONC 31.8 g/dL (32.0-36.0); MEAN CORPUSCULAR VOLUME 94.2 fL (79-99); NUCLEATED RED BLOOD CELLS 0.2 % (0.0-0.19); RED BLOOD CELL COUNT(AUTO) 3.27 MIL/uL (4.00-5.50); RED CELL DISTRIBUTION WIDTH 15.5 % (11.0-15.5); WHITE BLOOD COUNT (AUTO) 15.1 K/uL (4.8-10.8)
[2021-07-28 04:16] LABS: POTASSIUM 3.6 mmol/L (3.5-5.1)
[2021-07-28] MEDS: INSULIN HUMULIN R 100 UNIT/ML 3ML SQ SCH ×5 (05:02→23:56)
[2021-07-28] MEDS: ENOXAPARIN SODIUM 30 MG/0.3 ML SQ SCH (08:23)
[2021-07-28] MEDS: Vitamin B Complex/Vit C/Folic Acid PO SCH (09:00)
[2021-07-28] MEDS: CLOPIDOGREL 75MG TAB PO SCH (09:00)
[2021-07-28] MEDS: METOPROLOL TARTRATE 25 MG TAB NG SCH ×2 (09:00→19:36)
[2021-07-28] MEDS: ASPIRIN 81MG CHEW TAB PO SCH (09:00)
[2021-07-28] MEDS: IPRATROPIUM/ALBUTEROL SULFATE 3 ML SOLUTION IH SCH ×4 (11:18→22:51)
[2021-07-28] MEDS ORDERED: 0.9%NACL 50ML 100 ML IV ONE (13:26)
[2021-07-28] MEDS: VANCOMYCIN KIT 1 GM/250 ML IV.KIT IV SCH (15:28)
[2021-07-28] MEDS: BALSAM PERU/CASTOR OIL 60 GM TUBE TP SCH (20:11)
[2021-07-29] VITALS (25 sets, daily range): BP systolic 99–179; BP diastolic 42–91
[2021-07-29] MEDS ORDERED: 0.9%NACL 50ML 50 ML IV ONE ×2 (00:15→13:03)
[2021-07-29] MEDS: ZOSYN 3.375GM+NS 50ML 50 ML IV SCH ×2 (00:22→13:08)
[2021-07-29] MEDS: IPRATROPIUM/ALBUTEROL SULFATE 3 ML SOLUTION IH SCH ×6 (02:42→23:25)
[2021-07-29] MEDS: NITROGLYCERIN 1GM OINT 1 INCH/1GM TD SCH (04:07)
[2021-07-29 05:00] LABS: HEMATOCRIT 31.6 % (36-48); MEAN CORPUSCULAR HEMOGLOBIN 29.9 pg (27.0-33.0); MEAN CORPUSCULAR VOLUME 96.3 fL (79-99); NUCLEATED RED BLOOD CELLS 0.3 % (0.0-0.19); RED BLOOD CELL COUNT(AUTO) 3.28 MIL/uL (4.00-5.50); RED CELL DISTRIBUTION WIDTH 15.8 % (11.0-15.5); WHITE BLOOD COUNT (AUTO) 15.8 K/uL (4.8-10.8)
[2021-07-29 05:14] LABS: CREATININE 7.6 mg/dL (0.5-1.5)
[2021-07-29] MEDS: INSULIN HUMULIN R 100 UNIT/ML 3ML SQ SCH ×3 (06:00→17:27)
[2021-07-29] MEDS: Vitamin B Complex/Vit C/Folic Acid PO SCH (07:28)
[2021-07-29] MEDS: CLOPIDOGREL 75MG TAB PO SCH (07:28)
[2021-07-29] MEDS: METOPROLOL TARTRATE 25 MG TAB NG SCH (07:28)
[2021-07-29] MEDS: ASPIRIN 81MG CHEW TAB PO SCH (07:28)
[2021-07-29] MEDS: BALSAM PERU/CASTOR OIL 60 GM TUBE TP SCH ×3 (07:29→20:34)
[2021-07-29] MEDS: ENOXAPARIN SODIUM 30 MG/0.3 ML SQ SCH (07:34)
[2021-07-29] MEDS: VANCOMYCIN KIT 1 GM/250 ML IV.KIT IV SCH (15:00)
[2021-07-29] MEDS: EPOETIN ALFA-EPBX (ESRD) 10,000 UNIT/ML VIAL SQ SCH ×2 (16:52→22:26)
[2021-07-29] MEDS: HYDROMORPHONE 0.5 MG SYG (0.5MG/0.5ML) IVP PRN (20:06)
[2021-07-29] MEDS: METOPROLOL SUCCINATE 50 MG TAB.SR.24H PO SCH (21:00)
[2021-07-29] MEDS: 0.9%NACL 1000ML 1,000 ML IV PRN ×2 (22:22→22:28)
[2021-07-30] MEDS ORDERED: 0.9%NACL 50ML 50 ML IV ONE (01:14)
[2021-07-30] MEDS: ZOSYN 3.375GM+NS 50ML 50 ML IV SCH ×2 (01:19→13:15)
[2021-07-30] MEDS: HYDROMORPHONE 0.5 MG SYG (0.5MG/0.5ML) IVP PRN ×4 (02:09→21:48)
[2021-07-30 04:08] VITALS: BP 145/48
[2021-07-30] MEDS: INSULIN HUMULIN R 100 UNIT/ML 3ML SQ SCH ×4 (05:35→17:16)
[2021-07-30 06:39] LABS: HEMATOCRIT 33.1 % (36-48); MEAN CORPUSCULAR HEMOGLOBIN 29.6 pg (27.0-33.0); MEAN CORPUSCULAR HGB CONC 31.4 g/dL (32.0-36.0); MEAN CORPUSCULAR VOLUME 94.3 fL (79-99); NUCLEATED RED BLOOD CELLS 0.6 % (0.0-0.19); RED BLOOD CELL COUNT(AUTO) 3.51 MIL/uL (4.00-5.50); RED CELL DISTRIBUTION WIDTH 16.2 % (11.0-15.5); WHITE BLOOD COUNT (AUTO) 19.1 K/uL (4.8-10.8)
[2021-07-30 06:56] LABS: POTASSIUM 3.7 mmol/L (3.5-5.1)
[2021-07-30] MEDS: IPRATROPIUM/ALBUTEROL SULFATE 3 ML SOLUTION IH SCH ×5 (06:59→22:07)
[2021-07-30 08:00] VITALS: BP 140/59
[2021-07-30] MEDS: METOPROLOL SUCCINATE 50 MG TAB.SR.24H PO SCH (09:00)
[2021-07-30] MEDS: ASPIRIN 81MG CHEW TAB PO SCH (09:00)
[2021-07-30] MEDS: Vitamin B Complex/Vit C/Folic Acid PO SCH (09:00)
[2021-07-30] MEDS: CLOPIDOGREL 75MG TAB PO SCH (09:00)
[2021-07-30] MEDS: LOSARTAN 25 MG TABLET PO SCH (09:00)
[2021-07-30] MEDS: ENOXAPARIN SODIUM 30 MG/0.3 ML SQ SCH (09:48)
[2021-07-30] MEDS: BALSAM PERU/CASTOR OIL 60 GM TUBE TP SCH ×3 (09:48→21:49)
[2021-07-30 12:00] VITALS: BP 156/39
[2021-07-30 16:00] VITALS: BP 123/32
[2021-07-30 20:15] VITALS: BP 150/51
[2021-07-30 23:48] VITALS: BP 114/67
[2021-07-31] VITALS (20 sets, daily range): BP systolic 91–141; BP diastolic 34–99
[2021-07-31] MEDS: ZOSYN 3.375GM+NS 50ML 50 ML IV SCH ×2 (00:08→12:15)
[2021-07-31] MEDS: INSULIN HUMULIN R 100 UNIT/ML 3ML SQ SCH ×4 (00:09→18:21)
[2021-07-31] MEDS: IPRATROPIUM/ALBUTEROL SULFATE 3 ML SOLUTION IH SCH ×6 (01:57→22:31)
[2021-07-31 05:40] LABS: BASOPHILS % (AUTO) 0.7 % (0.0-5.0); EOSINOPHILS % (AUTO) 2.7 % (0.0-8.0); HEMATOCRIT 32.9 % (36-48); LYMPHOCYTES % (AUTO) 7.5 % (21.0-51.0); MEAN CORPUSCULAR HEMOGLOBIN 29.2 pg (27.0-33.0); MEAN CORPUSCULAR HGB CONC 30.4 g/dL (32.0-36.0); MEAN CORPUSCULAR VOLUME 96.2 fL (79-99); NUCLEATED RED BLOOD CELLS 0.3 % (0.0-0.19); PLATELET COUNT (AUTO) 521 K/uL (130-400); RED BLOOD CELL COUNT(AUTO) 3.42 MIL/uL (4.00-5.50); RED CELL DISTRIBUTION WIDTH 16.2 % (11.0-15.5)
[2021-07-31 06:52] LABS: CREATININE 6.9 mg/dL (0.5-1.5); PHOSPHORUS 6.4 mg/dL (2.5-4.9); POTASSIUM 3.6 mmol/L (3.5-5.1)
[2021-07-31] MEDS: CLOPIDOGREL 75MG TAB PO SCH (10:04)
[2021-07-31] MEDS: METOPROLOL SUCCINATE 50 MG TAB.SR.24H PO SCH (10:04)
[2021-07-31] MEDS: Vitamin B Complex/Vit C/Folic Acid PO SCH (10:04)
[2021-07-31] MEDS: ASPIRIN 81MG CHEW TAB PO SCH (10:05)
[2021-07-31] MEDS: ENOXAPARIN SODIUM 30 MG/0.3 ML SQ SCH (10:05)
[2021-07-31] MEDS: LOSARTAN 25 MG TABLET PO SCH (10:05)
[2021-07-31] MEDS: HYDROMORPHONE 0.5 MG SYG (0.5MG/0.5ML) IVP PRN ×3 (10:06→19:25)
[2021-07-31] MEDS: BALSAM PERU/CASTOR OIL 60 GM TUBE TP SCH ×3 (10:06→22:04)
[2021-07-31] MEDS ORDERED: VANCOMYCIN KIT 1 GM/250 ML IV.KIT IV SCH (15:00)
[2021-07-31] MEDS: EPOETIN ALFA-EPBX (ESRD) 10,000 UNIT/ML VIAL SQ SCH (22:03)
[2021-08-01] MEDS: ZOSYN 3.375GM+NS 50ML 50 ML IV SCH ×2 (00:40→15:27)
[2021-08-01] MEDS: HYDROMORPHONE 0.5 MG SYG (0.5MG/0.5ML) IVP PRN ×2 (01:46→06:25)
[2021-08-01] MEDS: IPRATROPIUM/ALBUTEROL SULFATE 3 ML SOLUTION IH SCH ×4 (02:10→13:16)
[2021-08-01 02:43] VITALS: BP 157/78
[2021-08-01 04:11] LABS: BASOPHILS % (AUTO) 0.7 % (0.0-5.0); EOSINOPHILS % (AUTO) 3.2 % (0.0-8.0); HEMATOCRIT 34.2 % (36-48); MEAN CORPUSCULAR HEMOGLOBIN 29.8 pg (27.0-33.0); MEAN CORPUSCULAR HGB CONC 31.6 g/dL (32.0-36.0); MEAN CORPUSCULAR VOLUME 94.2 fL (79-99); MONOCYTES % (AUTO) 5.3 % (3.0-13.0); NUCLEATED RED BLOOD CELLS 0.1 % (0.0-0.19); PLATELET COUNT (AUTO) 580 K/uL (130-400); RED BLOOD CELL COUNT(AUTO) 3.63 MIL/uL (4.00-5.50); RED CELL DISTRIBUTION WIDTH 16.5 % (11.0-15.5); WHITE BLOOD COUNT (AUTO) 17.6 K/uL (4.8-10.8)
[2021-08-01 04:18] LABS: CREATININE 4.3 mg/dL (0.5-1.5); POTASSIUM 3.4 mmol/L (3.5-5.1)
[2021-08-01] MEDS: INSULIN HUMULIN R 100 UNIT/ML 3ML SQ SCH ×3 (05:09→12:21)
[2021-08-01 08:00] VITALS: BP 126/40
[2021-08-01] MEDS: Vitamin B Complex/Vit C/Folic Acid PO SCH (09:50)
[2021-08-01] MEDS: METOPROLOL SUCCINATE 50 MG TAB.SR.24H PO SCH (09:51)
[2021-08-01] MEDS: LOSARTAN 25 MG TABLET PO SCH (09:51)
[2021-08-01] MEDS: ASPIRIN 81MG CHEW TAB PO SCH (09:51)
[2021-08-01] MEDS: CLOPIDOGREL 75MG TAB PO SCH (09:51)
[2021-08-01] MEDS: ENOXAPARIN SODIUM 30 MG/0.3 ML SQ SCH (10:00)
[2021-08-01] MEDS: BALSAM PERU/CASTOR OIL 60 GM TUBE TP SCH ×2 (10:00→15:31)
[2021-08-01 11:58] VITALS: BP 151/22
[2021-08-01 16:00] VITALS: BP 139/27
== END 2021-08-01 17:44 | DRG 207 ==
LOC: EDH 19:12 → OBSVTOIN 23:01 → EDHIP 23:01 → 3BH 07-19 09:53 → 2CH 07-20 00:56 → 2DH 07-29 05:16 → 4CH 07-30 03:28
PROVIDERS: ADMIT Internal Medicine; ATTEND Internal Medicine
PROC: 5A1D70Z Performance of Urinary Filtration, Intermittent, Less than 6 Hours Per Day (ICD-10-PCS; 2021-07-19)
PROC: 5A1955Z Respiratory Ventilation, Greater than 96 Consecutive Hours (ICD-10-PCS; principal; 2021-07-20)
PROC: 0BH17EZ Insertion of Endotracheal Airway into Trachea, Via Natural or Artificial Opening (ICD-10-PCS; 2021-07-20)
PROC: 02H633Z Insertion of Infusion Device into Right Atrium, Percutaneous Approach (ICD-10-PCS; 2021-07-20)
PROC: B5181ZA Fluoroscopy of Superior Vena Cava using Low Osmolar Contrast, Guidance (ICD-10-PCS; 2021-07-20)
PROC: 5A12012 Performance of Cardiac Output, Single, Manual (ICD-10-PCS; 2021-07-20)
PROC: 5A1D70Z Performance of Urinary Filtration, Intermittent, Less than 6 Hours Per Day (ICD-10-PCS; 2021-07-22)
PROC: 5A1D70Z Performance of Urinary Filtration, Intermittent, Less than 6 Hours Per Day (ICD-10-PCS; 2021-07-23)
PROC: 5A09357 Assistance with Respiratory Ventilation, Less than 24 Consecutive Hours, Continuous Positive Airway Pressure (ICD-10-PCS; 2021-07-23)
PROC: 5A1D70Z Performance of Urinary Filtration, Intermittent, Less than 6 Hours Per Day (ICD-10-PCS; 2021-07-24)
PROC: 5A1D70Z Performance of Urinary Filtration, Intermittent, Less than 6 Hours Per Day (ICD-10-PCS; 2021-07-24)
PROC: 30233N1 Transfusion of Nonautologous Red Blood Cells into Peripheral Vein, Percutaneous Approach (ICD-10-PCS; 2021-07-24)
PROC: 4A023N7 Measurement of Cardiac Sampling and Pressure, Left Heart, Percutaneous Approach (ICD-10-PCS; 2021-07-25)
PROC: B2111ZZ Fluoroscopy of Multiple Coronary Arteries using Low Osmolar Contrast (ICD-10-PCS; 2021-07-25)
PROC: B2151ZZ Fluoroscopy of Left Heart using Low Osmolar Contrast (ICD-10-PCS; 2021-07-25)
PROC: B41F1ZZ Fluoroscopy of Right Lower Extremity Arteries using Low Osmolar Contrast (ICD-10-PCS; 2021-07-25)
PROC: 5A1D70Z Performance of Urinary Filtration, Intermittent, Less than 6 Hours Per Day (ICD-10-PCS; 2021-07-26)
PROC: 5A09357 Assistance with Respiratory Ventilation, Less than 24 Consecutive Hours, Continuous Positive Airway Pressure (ICD-10-PCS; 2021-07-27)
PROC: 5A09357 Assistance with Respiratory Ventilation, Less than 24 Consecutive Hours, Continuous Positive Airway Pressure (ICD-10-PCS; 2021-07-28)
PROC: 5A1D70Z Performance of Urinary Filtration, Intermittent, Less than 6 Hours Per Day (ICD-10-PCS; 2021-07-29)
PROC: 5A1D70Z Performance of Urinary Filtration, Intermittent, Less than 6 Hours Per Day (ICD-10-PCS; 2021-07-31)
DX: J96.01 Acute respiratory failure with hypoxia (principal); I46.9 Cardiac arrest, cause unspecified; N18.6 End stage renal disease; I21.09 ST elevation (STEMI) myocardial infarction involving other coronary artery of anterior wall; E43 Unspecified severe protein-calorie malnutrition; S42.231A 3-part fracture of surgical neck of right humerus, initial encounter for closed fracture; S72.452A Displaced supracondylar fracture without intracondylar extension of lower end of left femur, initial encounter for closed fracture; E11.52 Type 2 diabetes mellitus with diabetic peripheral angiopathy with gangrene; E46 Unspecified protein-calorie malnutrition; G93.40 Encephalopathy, unspecified; I13.2 Hypertensive heart and chronic kidney disease with heart failure and with stage 5 chronic kidney disease, or end stage renal disease; I25.110 Atherosclerotic heart disease of native coronary artery with unstable angina pectoris; I50.22 Chronic systolic (congestive) heart failure; I70.269 Atherosclerosis of native arteries of extremities with gangrene, unspecified extremity; L97.929 Non-pressure chronic ulcer of unspecified part of left lower leg with unspecified severity; N17.9 Acute kidney failure, unspecified; E87.5 Hyperkalemia; D63.8 Anemia in other chronic diseases classified elsewhere; Z20.822 Contact with and (suspected) exposure to COVID-19; E11.22 Type 2 diabetes mellitus with diabetic chronic kidney disease; E66.9 Obesity, unspecified; E78.5 Hyperlipidemia, unspecified; I25.5 Ischemic cardiomyopathy; I34.0 Nonrheumatic mitral (valve) insufficiency; L89.152 Pressure ulcer of sacral region, stage 2; L89.302 Pressure ulcer of unspecified buttock, stage 2; Z51.5 Encounter for palliative care; W05.0XXA Fall from non-moving wheelchair, initial encounter; Y93.89 Activity, other specified; Y92.89 Other specified places as the place of occurrence of the external cause; Z68.32 Body mass index [BMI] 32.0-32.9, adult; I25.2 Old myocardial infarction; Y99.8 Other external cause status; Z99.2 Dependence on renal dialysis; Z79.82 Long term (current) use of aspirin; Z89.612 Acquired absence of left leg above knee; Z89.611 Acquired absence of right leg above knee; Z89.511 Acquired absence of right leg below knee; Z89.512 Acquired absence of left leg below knee; Z87.01 Personal history of pneumonia (recurrent); Z88.8 Allergy status to other drugs, medicaments and biological substances; Z83.3 Family history of diabetes mellitus; Z82.49 Family history of ischemic heart disease and other diseases of the circulatory system
CPT/HCPCS: 31500; 36415; 36430; 36600; 71045; 73030; 73060; 73120; 73551; 73562; 80048; 80053; 80202; 82140; 82435; 82550; 82803; 82947; 82948; 83605; 83735; 83874; 83880; 84100; 84132; 84145; 84295; 84443; 84484; 85014; 85018; 85025; 85027; 85378; 85610; 85730; 86704; 86706; 86850; 86900; 86901; 86923; 87040; 87088; 87340; 87635; 90935; 92526; 92610; 92950; 93005; 93306; 93356; 93458; 93926; 94002; 94003; 94640; 94660; 94664; 94667; 94668; A4344; C1751; C1760; C1894; G0378; J0171; J0583; J1170; J1200; J1644; J1650; J1815; J2060; J2270; J2405; J2543; J2704; J3010; J3370; J3490; J7030; J7050; J7070; P9016; P9046; Q9967